=== PATIENT | female | born 1945 | race Caucasian/White ===

== ENCOUNTER 2017-11-03 06:20 | Observation (INO) | payer MEDICARE, OTHER ==
[2017-11-03] MEDS ORDERED: Sodium Chloride 0.9% 10 ML Syringe FLUSH PRN (06:58)
[2017-11-03] MEDS ORDERED: Ketorolac 30 MG/ML SDV IVPUSH ONE (06:58)
--- NOTE | 2017-11-03 07:05 | EDM.PDOC ---
<Jung Shore - Last Filed: 11/03/17 07:00> ED HPI GENERAL MEDICAL PROBLEM - General Chief Complaint: Neuro Symptoms/Deficits Stated Complaint: NOT FEELING LIKE HERSELF NOT CLEAR THINKING Time Seen by Provider: 11/03/17 06:34 Source of Information: Reports: Patient, Family, RN Notes Reviewed (Son) History Limitations: Reports: No Limitations - History of Present Illness INITIAL COMMENTS - FREE TEXT/NARRATIVE: Brought in by her son Chief complaint Headache, convulsion History of present illness 72-year-old female, retired, lives on her own, slipped on concrete steps 4 days ago at home, slid down 3 or 4 steps and wound up on the landing. She didn't hit her head she states that she did snap her neck quite a bit. She laid there a few minutes before getting herself up and carrying on with rest for a day. Apart from being ill stiff and sore she had no trouble that they or the next day but then 2 days ago she started feeling a bit nauseated and her back was a bit more uncomfortable for her. Yesterday she went to [place], picked up her son who had a couple days off and he came to stay with her. That evening, last night, for some reason she felt an incredible urge to urinate and had frequency and urgency and even incontinent about 3 times so she did make to the bathroom in time. No problems with walking or balance no pain with urination. She did have some backache and she wonders if she might of [place] kidney when she fell and she did later noticed a bruise there. However the urine looked totally yellow and clear without any evidence of darkness or blood. Woken up about 4:30 with tremors to her whole body lasted for about half an hour on and off, very uncomfortable. Managed to fall back asleep and woke up at 5:30 with a terrible generalized headache. Called her son who had stayed with her overnight and asked him to take her to the hospital. According to the son her color in appearance and behavior was normal, no confusion no facial droop. She has some mild tremor of the head and hands which has been unchanged. Nausea is better today, she did not have any vomiting yesterday or today No pain in her arms or legs which does have some low back pain a little bit of discomfort between her shoulder blades No difficulties breathing no chest pain no abdominal pain no diarrhea and no skin wounds apart from bruising on her back. No history of any convulsion-like spells previously and rarely gets headaches. She drinks alcohol very rarely, less than once a month and only had one wine cooler in the last year Her only recent medication changes that she ran out of it and stopped using Spiriva about 5 days ago Not on anticoagulants Head Pain Score (Numeric/FACES): 10 - Related Data Allergies Allergy/AdvReac Type Severity Reaction Status Date / Time broccoli Allergy Other Verified 11/03/17 06:28 buspirone [From BuSpar] Allergy Cannot Verified 11/03/17 06:28 Remember doxycycline Allergy Cannot Verified 11/03/17 06:28 Remember paroxetine [From Paxil] Allergy Cannot Verified 11/03/17 06:28 Remember venlafaxine [From Effexor] Allergy Cannot Verified 11/03/17 06:28 Remember lisinopril AdvReac Cough Verified 11/03/17 06:28 scopolamine AdvReac Hallucinati Verified 11/03/17 06:28 ons SHRIMP FLAVOR Allergy Nausea and Uncoded 11/03/17 06:28 Vomiting Home Meds: Home Meds Gabapentin [Neurontin] 300 mg PO BEDTIME 06/25/16 [History] Propranolol [Inderal] 20 mg PO BID 06/25/16 [History] Caffeine [Vivarin] 200 mg PO DAILY 06/28/16 [History] Cholecalciferol (Vitamin D3) [Vitamin D3] 5,000 units PO DAILY 06/28/16 [History ] Latanoprost [Xalatan 0.005% Ophth Soln] 1 drop EYELF DAILY 06/28/16 [History] Mv-Mn/FA/Vit K/Lycop/Lut/Zeaxa [Ocuvite Eye + Multi Tablet] 1 tab PO DAILY 06/28 [History] Aspirin [Low Dose Aspirin EC] 81 mg PO DAILY 11/03/17 [History] Clopidogrel Bisulfate [Clopidogrel] 75 mg PO DAILY 11/03/17 [History] Timolol Maleate [Timolol Maleate] 1 drop EYEBOTH DAILY 11/03/17 [History] atorvaSTATin [Lipitor] 20 mg PO BEDTIME 11/03/17 [History] Past Medical History Cardiovascular History: Reports: High Cholesterol, Hypertension, Stents Respiratory History: Reports: COPD Genitourinary History: Reports: Renal Calculus 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 Denies: Fever, Diaphoresis HEENT: Reports: No Symptoms. Denies: Rhinitis, Vertigo Respiratory: Reports: No Symptoms Cardiovascular: Reports: No Symptoms. Denies: Chest Pain, Lightheadedness, Syncope Endocrine: Reports: Polyuria GI/Abdominal: Reports: Nausea. Denies: Abdominal Pain, Diarrhea, Decreased Appetite, Vomiting : Reports: Frequency, Urgency. Denies: Dysuria, Hematuria Musculoskeletal: Reports: Back Pain Skin: Reports: No Symptoms Neurological: Reports: Headache, Other (Convulsion-like episode). Denies: Confusion, Trouble Speaking, Difficulty Walking, Weakness Psychiatric: Reports: No Symptoms Hematologic/Lymphatic: Reports: No Symptoms Immunologic: Reports: No Symptoms ED EXAM, NEURO - Physical Exam Exam: See Below Exam Limited By: No Limitations General Appearance: Alert, Anxious, Mild Distress, Other (No difficulty speaking or breathing, mild tachycardia and modest elevation blood pressure, color normal) Eye Exam: Bilateral Eye: EOMI, Normal Inspection Ears: Normal External Exam, Hearing Grossly Normal Nose: Normal Inspection, Normal Mucosa Throat/Mouth: Normal Inspection, Normal Lips, Normal Oropharynx, Normal Voice Head Exam: Atraumatic, Normocephalic Neck: Normal Inspection, Supple, Tender Lateral Respiratory/Chest: No Respiratory Distress, Lungs Clear, Normal Breath Sounds, No Accessory Muscle Use, Chest Non-Tender Cardiovascular: Regular Rate, Rhythm, No Murmur, Tachycardia (Mild) GI/Abdominal: Normal Bowel Sounds, Soft, Non-Tender, Other (Overweight) Neurological: Alert, Normal Dorsiflexion, Normal Plantar Flexion, Normal Reflexes, No Motor/Sensory Deficits, Other (Normal [id number] testing, no facial droop) Back Exam: Paraspinal Tenderness (Lumbar area and to a lesser degree between the shoulder blades with some tenderness was sitting up), Other (Phill left lumbar area) Extremities: Normal Inspection, Normal Range of Motion Psychiatric: Anxious Skin Exam: Warm, Intact, No Rash Comments: 72-year-old female, fall 4 days ago nausea yesterday frequency and urgency last night, convulsion-like episode and headache this morning. Saline lock Toradol 15 mg IV for headache Investigations ordered Transferred to care of Dr. Jamil pending results and disposition Course - Vital Signs Last Recorded V/S: Last Vital Signs Temp 99.4 F 11/03/17 13:52 Pulse 86 11/03/17 12:19 Resp 20 11/03/17 12:19 BP 144/91 H 11/03/17 12:19 Pulse Ox 91 L 11/03/17 12:19 - Orders/Labs/Meds Orders: Active Orders 24 hr Category Date Time Status Cervical Spine wo Cont [CT] Stat Exams 11/03/17 06:58 Taken Head wo Cont [CT] Stat Exams 11/03/17 06:58 Taken Lumbar Spine wo Cont [CT] Stat Exams 11/03/17 06:58 Taken Sodium Chloride 0.9% [Saline Flush] Med 11/03/17 06:58 Active 10 ml FLUSH ASDIRECTED PRN Saline Lock Insert [OM.PC] Stat Oth 11/03/17 06:57 Ordered Medication Orders Acetaminophen (Tylenol) 650 mg PO Q4H PRN PRN Reason: Pain (Mild 1-3)/fever Aspirin (Halfprin) 81 mg PO DAILY [facility] Clopidogrel Bisulfate (Plavix) 75 mg PO DAILY [facility] Gabapentin (Neurontin) 300 mg PO BEDTIME [facility] Hydromorphone HCl (Dilaudid) 0.5 - 1 mg IVPUSH Q2H PRN PRN Reason: Pain (severe 7-10) Piperacillin/Tazobactam/ (Dextrose 3.375 gm/ Premix) 50 mls @ 100 mls/hr IV Q6H AJAY Last Admin: 11/03/17 15:38 Dose: 100 mls/hr Sodium Chloride (Normal Saline) 1,000 mls @ 100 mls/hr IV ASDIRECTED AJAY Last Admin: 11/03/17 15:34 Dose: 100 mls/hr Ibuprofen (Motrin) 600 mg PO Q6H PRN PRN Reason: Pain/Fever Last Admin: 11/03/17 12:34 Dose: 600 mg Latanoprost (Xalatan 0.005% Ophth Soln) 0 ml EYELF BEDTIME [facility] Ondansetron HCl (Zofran Odt) 4 mg PO Q6H PRN PRN Reason: Nausea able to take PO Ondansetron HCl (Zofran) 4 mg IV Q6H PRN PRN Reason: Nausea/Vomiting Oxycodone HCl (Oxycodone) 5 mg PO Q4H PRN PRN Reason: Pain (moderate 4-6) Propranolol 20mg ( (Ptom)) 0 each PO BID AJAY Sodium Chloride (Saline Flush) 10 ml FLUSH ASDIRECTED PRN PRN Reason: Keep Vein Open Last Admin: 11/03/17 07:22 Dose: 10 ml Timolol Maleate (Timoptic 0.5% Ophth Soln) 0 ml EYEBOTH DAILY AJAY Tizanidine HCl (Zanaflex) 2 mg PO Q6H PRN PRN Reason: Muscle Spasm Labs: Laboratory Tests 11/03/17 11/03/17 11/03/17 Range/Units 07:08 07:08 08:42 WBC 15.6 H (4.5-11.0) K/uL RBC 4.50 (3.30-5.50) M/uL Hgb 13.3 (12.0-15.0) g/dL Hct 41.1 (36.0-48.0) % MCV 91 (80-98) fL MCH 30 (27-31) pg MCHC 32 (32-36) % Plt Count 280 (150-400) K/uL Sodium 141 (140-148) mmol/L Potassium 3.9 (3.6-5.2) mmol/L Chloride 103 (100-108) mmol/L Carbon Dioxide 27 (21-32) mmol/L Anion Gap 11.0 (5.0-14.0) mmol/L BUN 20 H (7-18) mg/dL Creatinine 0.8 (0.6-1.0) mg/dL Est Cr Clr Drug Dosing 51.01 mL/min Estimated GFR (MDRD) > 60 (>60) Glucose 199 H (74-106) mg/dL Calcium 9.1 (8.5-10.1) mg/dL Total Bilirubin 3.5 H (0.2-1.0) mg/dL AST 490 H (15-37) U/L ALT 570 H (12-78) U/L Alkaline Phosphatase 290 H (46-116) U/L Total Protein 6.5 (6.4-8.2) g/dL Albumin 3.3 L (3.4-5.0) g/dL Globulin 3.2 (2.3-3.5) g/dL Albumin/Globulin Ratio 1.0 L (1.2-2.2) Urine Color Yellow Urine Appearance Slightly cloudy Urine pH 5.0 (4.5-8.0) Ur Specific [place] 1.010 (1.008-1.030) Urine Protein Trace (NEGATIVE) mg/dL Urine Glucose (UA) Normal (NEGATIVE) mg/dL Urine Ketones 15 H (NEGATIVE) mg/dL Urine Occult Blood Large (NEGATIVE) Urine Nitrite Negative (NEGATIVE) Urine Bilirubin Moderate (NEGATIVE) Urine Urobilinogen 4 (NORMAL) mg/dL Ur Leukocyte Esterase Small (NEGATIVE) Urine RBC 40-50 H (0-5) Urine WBC 0-5 (0-5) Ur Epithelial Cells Not seen Amorphous Sediment Not seen Urine Bacteria Not seen Urine Mucus Moderate Meds: Medications Generic Name Dose Route Start Last Admin Trade Name Freq PRN Reason Stop Dose Admin Acetaminophen 650 mg 11/03/17 11:55 Tylenol PO Q4H PRN Pain (Mild 1-3)/fever Aspirin 81 mg 11/04/17 09:00 Halfprin PO DAILY [facility] Clopidogrel Bisulfate 75 mg 11/04/17 09:00 Plavix PO DAILY [facility] Gabapentin 300 mg 11/03/17 21:00 Neurontin PO BEDTIME [facility] Hydromorphone HCl 0.5 - 1 mg 11/03/17 11:55 Dilaudid IVPUSH Q2H PRN Pain (severe 7-10) Piperacillin/Tazobactam/ 50 mls @ 100 mls/hr 11/03/17 15:00 11/03/17 15:38 Dextrose 3.375 gm/ Premix IV 100 mls/hr Q6H AJAY Administration Sodium Chloride 1,000 mls @ 100 mls/hr 11/03/17 13:45 11/03/17 15:34 Normal Saline IV 100 mls/hr ASDIRECTED AJAY Administration Ibuprofen 600 mg 11/03/17 11:55 11/03/17 12:34 Motrin PO 600 mg Q6H PRN Administration Pain/Fever Latanoprost 0 ml 11/03/17 21:00 Xalatan 0.005% Ophth Soln EYELF BEDTIME [facility]AY Ondansetron HCl 4 mg 11/03/17 11:55 Zofran Odt PO Q6H PRN Nausea able to take PO Ondansetron HCl 4 mg 11/03/17 11:55 Zofran IV Q6H PRN Nausea/Vomiting Oxycodone HCl 5 mg 11/03/17 11:55 Oxycodone PO Q4H PRN Pain (moderate 4-6) Propranolol 20mg ( 0 each 11/03/17 21:00 Ptom) PO BID AJAY Sodium Chloride 10 ml 11/03/17 06:58 11/03/17 07:22 Saline Flush FLUSH 10 ml ASDIRECTED PRN Administration Keep Vein Open Timolol Maleate 0 ml 11/04/17 09:00 Timoptic 0.5% Ophth Soln EYEBOTH DAILY [facility] Tizanidine HCl 2 mg 11/03/17 11:55 Zanaflex PO Q6H PRN Muscle Spasm Discontinued Medications Generic Name Dose Route Start Last Admin Trade Name Freq PRN Reason Stop Dose Admin Hydromorphone HCl 0.5 mg 11/03/17 08:42 11/03/17 08:48 Dilaudid IVPUSH 11/03/17 08:43 0.5 mg ONETIME ONE Administration Ketorolac Tromethamine 15 mg 11/03/17 06:58 11/03/17 07:24 Toradol IVPUSH 11/03/17 06:59 15 mg ONETIME ONE Administration Departure - Departure Disposition: Admitted As Inpatient 67 Clinical Impression: Elevated liver function tests, Hyperbilirubinemia - Discharge Information <Mikal Jamil - Last Filed: 11/03/17 16:42> Course - Re-Assessments/Exams Free Text/Narrative Re-Assessment/Exam: 11/03/17 10:52 Patient seen and evaluated by Dr. Shore. Care was turned myself pending CT scans and lab. Head neck and lumbar spine CTs were reassuring for acute injury, however her bilirubin returned 3.5 and liver functions are elevated. She also has hematuria. Her headache was very persistent, should she was given 0.5 mg of Dilaudid IV which completely resolved her headache. A gallbladder ultrasound was then obtained which confirmed gallbladder sludge and stones but no dilatation of the bile duct. I talk with Dr. Yuen of the hospitalist service to consider admission to monitor the LFTs and bilirubin over the next 1-2 days. Departure - Departure Time of Disposition: 12:07 Condition: Fair
[2017-11-03] MEDS ORDERED: HYDROmorphone 0.5 MG/0.5 ML Syringe IVPUSH ONE (08:42)
--- NOTE | 2017-11-03 09:38 | US ---
Right upper quadrant ultrasound There is increased echogenicity throughout the liver. The finding is consistent with fatty infiltrati on. Diminished echogenicity near the gallbladder fossa is most consistent with focal sparing. Gallsto thang are seen. There is no wall thickening of the gallbladder. There is no pain with palpation overlyi ng the gallbladder. The common bile duct is within normal limits measuring 5 mm. The pancreas is unre markable. The right kidney measures 9.3 cm in length. There is no hydronephrosis. There is a 1.7 cm c yst of the lower pole. Impression: 1. Fatty infiltration throughout the liver with focal sparing near the gallbladder fossa. 2. Cholelithiasis. No evidence for inflammation.
--- NOTE | 2017-11-03 11:33 | PCM.HP ---
H&P History of Present Illness - General Date of Service: 11/03/17 Admit Problem/Dx: Admission Diagnosis/Problem Admission Diagnosis/Problem Liver function tests abnormal Source of Information: Patient, Family, Provider History Limitations: Reports: No Limitations - History of Present Illness Initial Comments - Free Text/Narative: Matilda presents to the emergency room today with 3 days of both mid and lower back pain after a fall on the stairs at her residence. She reports that she slipped while going down stairs and landed on her buttocks and lower back. She was able to get up under her own power after the incident and has had some stiffness and progressive muscle soreness since that time. She reports dull achy pain in the lower back with a sharper pain in the mid back. This pain can be anywhere from mild to moderately severe but typically are moderate in nature. They're worse with any sort of activity especially bending and twisting. Acetaminophen does provide some relief. She also reports 24 hours of nausea. She has not had much of an appetite. No vomiting or change in bowel habits. She does not have any abdominal pain. She reports subjective fevers as well as an episode of what sounds like shaking chills last night. Her weight has been slowly rising over the past couple of years with some ups and downs but she is near that her highest weight. She was recently treated with a prescription diet medication and stopped this just a week or so ago. Workup in the emergency room revealed a reassuring imaging as far as her cervical spine, lumbar spine and head CT were concerned. An ultrasound of her right upper quadrant did show gallstones but no cholecystitis. Laboratory studies revealed significant transaminitis as well as hyperbilirubinemia. She will be admitted for observation and further workup. Head Pain Score (Numeric/FACES): 10 - Related Data Allergies/Adverse Reactions: Allergies Allergy/AdvReac Type Severity Reaction Status Date / Time broccoli Allergy Other Verified 11/03/17 06:28 buspirone [From BuSpar] Allergy Cannot Verified 11/03/17 06:28 Remember doxycycline Allergy Cannot Verified 11/03/17 06:28 Remember paroxetine [From Paxil] Allergy Cannot Verified 11/03/17 06:28 Remember venlafaxine [From Effexor] Allergy Cannot Verified 11/03/17 06:28 Remember lisinopril AdvReac Cough Verified 11/03/17 06:28 scopolamine AdvReac Hallucinati Verified 11/03/17 06:28 ons SHRIMP FLAVOR Allergy Nausea and Uncoded 11/03/17 06:28 Vomiting Home Medications: Home Meds Gabapentin [Neurontin] 300 mg PO BEDTIME 06/25/16 [History] Propranolol [Inderal] 20 mg PO BID 06/25/16 [History] Biotin 5,000 mcg PO DAILY 06/28/16 [History] Caffeine [Vivarin] 200 mg PO DAILY 06/28/16 [History] Cholecalciferol (Vitamin D3) [Vitamin D3] 5,000 units PO DAILY 06/28/16 [History ] Latanoprost [Xalatan 0.005% Ophth Soln] 1 drop EYELF DAILY 06/28/16 [History] Mv, Min #36/Iron,Carbonyl/FA [Geritol Complete Tablet] 1 tab PO DAILY 06/28/16 [ History] Mv-Mn/FA/Vit K/Lycop/Lut/Zeaxa [Ocuvite Eye + Multi Tablet] 1 tab PO DAILY 06/28 [History] Vitamin E 800 units PO DAILY 06/28/16 [History] Aspirin [Low Dose Aspirin EC] 81 mg PO DAILY 11/03/17 [History] Clopidogrel Bisulfate [Clopidogrel] 75 mg PO DAILY 11/03/17 [History] Timolol Maleate [Timolol Maleate] 1 drop EYEBOTH DAILY 11/03/17 [History] Past Medical History Cardiovascular History: Reports: High Cholesterol, Hypertension, Stents Respiratory History: Reports: COPD Genitourinary History: Reports: Renal Calculus [employer] History: Reports: Psychiatric History: Reports: Depression - Past Surgical History Other Musculoskeletal Surgeries/Procedures:: R HAND, 2ND DIGIT FX Social & Family History - Family History Cardiac: Reports: Aneurysm (Father with AAA) GI: Reports: Cholelithiasis (Brother) Endocrine/Metabolic: Reports: Diabetes, type II (Sister and Brother) - Tobacco Use Smoking Status *Q: Unknown Ever Smoked - Caffeine Use Caffeine Use: Reports: None - Alcohol Use Alcohol Use History: No H&P Review of Systems - Review of Systems: Review Of Systems: See Below Free Text/Narrative: A complete 12 point review of systems was obtained. Pertinent positives and negatives are noted in the history of present illness. All other systems were reviewed and were negative except as noted. Exam - Exam Exam: See Below - Vital Signs Vital Signs: Last Vital Signs Temp 37.3 C 11/03/17 06:23 Pulse 86 11/03/17 09:28 Resp 16 11/03/17 09:28 BP 102/48 L 11/03/17 09:28 Pulse Ox 91 L 11/03/17 09:28 Weight: 110.677 kg - Exam Quality Assessment: No: Supplemental Oxygen General: Alert, Oriented, Cooperative. No: Mild Distress HEENT: Conjunctiva Clear, Mucosa Moist & [place]. No: Scleral Icterus Neck: Supple, Trachea Midline. No: Lymphadenopathy Lungs: Clear to Auscultation, Normal Respiratory Effort Cardiovascular: Regular Rate, Regular Rhythm. No: Systolic Murmur GI/Abdominal Exam: Normal Bowel Sounds, Soft, No Distention, Tender (mild RUQ). No: Guarding Back Exam: Normal Inspection, Decreased Range of Motion, Paraspinal Tenderness ( mid thoracic and lumbar spine with bilateral ttp ) Extremities: No Pedal Edema. No: Increased Warmth Peripheral Pulses: 2+: Dorsalis Pedis (L), Dorsalis Pedis (R) Skin: Warm, Dry, Ecchymosis (left upper gluteal area) Neuro Extensive - Mental Status: Alert, Oriented x3, Nl Response to Commands Neuro Extensive - Motor, Sensory, Reflexes: CN II-XII Intact. No: Dysarthria, Abnormal Motor, Tremor Psychiatric: Alert, Normal Affect - Patient Data Lab Results Last 24 hrs: Laboratory Results - last 24 hr 11/03/17 11/03/17 11/03/17 Range/Units 07:08 07:08 08:42 WBC 15.6 H (4.5-11.0) K/uL RBC 4.50 (3.30-5.50) M/uL Hgb 13.3 (12.0-15.0) g/dL Hct 41.1 (36.0-48.0) % MCV 91 (80-98) fL MCH 30 (27-31) pg MCHC 32 (32-36) % Plt Count 280 (150-400) K/uL Sodium 141 (140-148) mmol/L Potassium 3.9 (3.6-5.2) mmol/L Chloride 103 (100-108) mmol/L Carbon Dioxide 27 (21-32) mmol/L Anion Gap 11.0 (5.0-14.0) mmol/L BUN 20 H (7-18) mg/dL Creatinine 0.8 (0.6-1.0) mg/dL Est Cr Clr Drug Dosing 51.01 mL/min Estimated GFR (MDRD) > 60 (>60) Glucose 199 H (74-106) mg/dL Calcium 9.1 (8.5-10.1) mg/dL Total Bilirubin 3.5 H (0.2-1.0) mg/dL AST 490 H (15-37) U/L ALT 570 H (12-78) U/L Alkaline Phosphatase 290 H (46-116) U/L Total Protein 6.5 (6.4-8.2) g/dL Albumin 3.3 L (3.4-5.0) g/dL Globulin 3.2 (2.3-3.5) g/dL Albumin/Globulin Ratio 1.0 L (1.2-2.2) Urine Color Yellow Urine Appearance Slightly cloudy Urine pH 5.0 (4.5-8.0) Ur Specific [place] 1.010 (1.008-1.030) Urine Protein Trace (NEGATIVE) mg/dL Urine Glucose (UA) Normal (NEGATIVE) mg/dL Urine Ketones 15 H (NEGATIVE) mg/dL Urine Occult Blood Large (NEGATIVE) Urine Nitrite Negative (NEGATIVE) Urine Bilirubin Moderate (NEGATIVE) Urine Urobilinogen 4 (NORMAL) mg/dL Ur Leukocyte Esterase Small (NEGATIVE) Urine RBC 40-50 H (0-5) Urine WBC 0-5 (0-5) Ur Epithelial Cells Not seen Amorphous Sediment Not seen Urine Bacteria Not seen Urine Mucus Moderate Result Diagrams: 11/03/17 07:08 11/03/17 07:08 Imaging Impressions Last 24 hrs: RUQ US - cholelithiasis, no cholecystitis. Fatty liver Head CT - no acute findings Cervical spine CT - no fracture or dislocation Lumbar spine CT - images personally reviewed - No acute findings such as fracture or dislocation. *Q Meaningful Use (ADM) - VTE *Q VTE Criteria *Q: - VTE Risk Assess *Q Each Risk Factor Represents 1 Point: Obesity ( BMI > 25 kg/m2) Total Score 1 Point Risk Factors: 1 Each Risk Factor Represents 2 Points: Age 60 - 74 Years Total Score 2 Point Risk Factors: 2 Each Risk Factor Represents 3 Points: None Total Score 3 Point Risk Factors: 0 Each Risk Factor Represents 5 Points: None Total Score 5 Point Risk Factors: 0 Venous Thromboembolism Risk Factor Score *Q: 3 - Stroke *Q Stroke Criteria *Q: - AMI *Q AMI Criteria *Q: - Problem List (1) Elevated liver function tests SNOMED Code(s): 329545349 ICD Code: R79.89 - OTHER SPECIFIED ABNORMAL FINDINGS OF BLOOD CHEMISTRY Status: Acute Current Visit: Yes (2) Hyperbilirubinemia SNOMED Code(s): 23829531 ICD Code: E80.6 - OTHER DISORDERS OF BILIRUBIN METABOLISM Status: Acute Current Visit: Yes (3) Muscle spasm of back SNOMED Code(s): 899601410 ICD Code: M62.830 - MUSCLE SPASM OF BACK Status: Acute Current Visit: Yes (4) Obesity, morbid, BMI 40.0-49.9 SNOMED Code(s): 262295864 ICD Code: E66.01 - MORBID (SEVERE) OBESITY DUE TO EXCESS CALORIES Status: Chronic Current Visit: Yes (5) CAD (coronary artery disease) SNOMED Code(s): 63393497 ICD Code: I25.10 - ATHSCL HEART DISEASE OF [place] CORONARY ARTERY W/O ANG PCTRS Status: Chronic Current Visit: Yes Qualifiers: Coronary Disease-Associated Artery/Lesion type: [place] artery [place] vs. transplanted heart: [place] heart Associated angina: without angina Qualified Code(s): I25.10 - Atherosclerotic heart disease of [place] coronary artery without angina pectoris Problem List Initiated/Reviewed/Updated: Yes Orders Last 24hrs: Active Orders 24 hr Category Date Time Status Patient Status Manage Transfer [TRANSFER] Routine ADT 11/03/17 11:20 Ordered Cervical Spine wo Cont [CT] Stat Exams 11/03/17 06:58 Taken Head wo Cont [CT] Stat Exams 11/03/17 06:58 Taken Lumbar Spine wo Cont [CT] Stat Exams 11/03/17 06:58 Taken Sodium Chloride 0.9% [Saline Flush] Med 11/03/17 06:58 Active 10 ml FLUSH ASDIRECTED PRN Saline Lock Insert [OM.PC] Stat Oth 11/03/17 06:57 Ordered Resuscitation Status Routine Resus Stat 11/03/17 11:21 Ordered Medication Orders Sodium Chloride (Saline Flush) 10 ml FLUSH ASDIRECTED PRN PRN Reason: Keep Vein Open Last Admin: 11/03/17 07:22 Dose: 10 ml Assessment/Plan Comment:: ASSESSMENT AND PLAN - Transaminitis with elevated bilirubin - etiology not entirely clear at this point. Patient does have cholelithiasis but no evidence for cholecystitis. She was recently on Contrave which could have some potential to cause hepatic injury. Her story seems to be most consistent with a gallstone that she may have passed recently or is potentially still obstructing. She had normal AST and ALTs as well as bilirubin just 3 months ago. Viral disease such as hepatitis is pretty unlikely and she does not have significant risk factors. She did spike a fever she was being transferred from the emergency room to the second floor. -Empiric antibiotics with Pip/Tazo -Blood cultures with fever -Pain control -Nausea control -MRCP in the morning -Repeat labs in the morning Muscular back pain - Significant muscle spasm and some bruising related to recent fall. Spinal imaging was unremarkable. Pain is tolerable at this time. -Pain control -Muscle relaxer Coronary artery disease - Recent stenting. No active symptoms. Functional status had been acceptable prior to recent injury. -Continue medical management Morbid obesity with BMI greater than 40 - Patient has been trying to lose weight with diet and exercise. Recently on prescription weight loss medication with no improvement. Maintenance issues - - DVT prophylaxis - mechanical - GI prophylaxis - not indicated - Nutrition - regular diet tonight, nothing by mouth after midnight - Hdez catheter - not indicated CODE STATUS - full code Admission justification - patient will be referred observation status for monitoring overnight and additional testing tomorrow as well as symptom management overnight. Disposition - anticipate discharge home tomorrow Primary care physician - Dr. Isabela Yuen M.D.
[2017-11-03] MEDS ORDERED: HYDROmorphone 0.5 MG/0.5 ML Syringe IVPUSH PRN (11:55)
[2017-11-03] MEDS ORDERED: oxyCODONE 5 MG Tab PO PRN (11:55)
[2017-11-03] MEDS ORDERED: Ondansetron 4 MG Tab.DIS PO PRN (11:55)
[2017-11-03] MEDS ORDERED: Ondansetron 4 MG/2 ML SDV IV PRN (11:55)
[2017-11-03] MEDS ORDERED: Acetaminophen 325 MG Tab PO PRN (11:55)
[2017-11-03] MEDS: Ibuprofen 600 MG Tab PO PRN ×2 (12:34→22:02)
[2017-11-03] MEDS: Sodium Chloride 0.9% 1,000 ML IV SCH (15:34)
[2017-11-03] MEDS: Piperacillin/Tazobactam/Dext 3.375 GM in Premix Bag 1 BAG IV SCH ×2 (15:38→21:39)
[2017-11-03] MEDS ORDERED: Non-Formulary Medication 1 Each (Gabapentin [Neurontin] 300 MG) PO SCH (21:00)
[2017-11-03] MEDS ORDERED: TIMOLOL MALEATE PO SCH (21:00)
[2017-11-03] MEDS ORDERED: Propranolol 10 MG Tab PO SCH (21:00)
[2017-11-03] MEDS ORDERED: PROPRANOLOL 20 MG PO SCH (21:00)
[2017-11-03] MEDS: PROPRANOLOL 20 MG PO SCH (21:35)
[2017-11-03] MEDS: Gabapentin 300 MG Cap (PTOM) PO SCH (21:35)
[2017-11-03] MEDS: Latanoprost 0.005% Ophth Soln (PTOM) EYELF SCH (21:38)
[2017-11-04] MEDS: Sodium Chloride 0.9% 1,000 ML IV SCH ×2 (01:05→17:15)
[2017-11-04] MEDS: Piperacillin/Tazobactam/Dext 3.375 GM in Premix Bag 1 BAG IV SCH ×4 (03:10→20:59)
[2017-11-04] MEDS ORDERED: diphenhydrAMINE 25 MG Cap PO ONE (04:02)
[2017-11-04] MEDS ORDERED: Clopidogrel 75 MG Tab (PTOM) PO SCH (09:00)
[2017-11-04] MEDS ORDERED: Non-Formulary Medication 1 Each (Clopidogrel Bisulfate [Clopidogrel] 75 MG) PO SCH (09:00)
[2017-11-04] MEDS ORDERED: Non-Formulary Medication 1 Each (Latanoprost [Xalatan 0.005% Ophth Soln] 1 DROP) EYELF SCH (09:00)
[2017-11-04] MEDS ORDERED: Non-Formulary Medication 1 Each (Aspirin [Low Dose Aspirin Ec] 81 MG) PO SCH (09:00)
[2017-11-04] MEDS: TIMOLOL MALEATE 0.5% EYEBOTH SCH (10:34)
[2017-11-04] MEDS: PROPRANOLOL 20 MG PO SCH ×2 (10:34→21:01)
[2017-11-04] MEDS: Aspirin 81 MG Tab.EC PO SCH (11:19)
[2017-11-04] MEDS: tiZANidine 4 MG Tab PO PRN ×2 (11:36→20:58)
[2017-11-04] MEDS ORDERED: LORazepam 1 MG Tab PO ONE (14:00)
[2017-11-04] MEDS ORDERED: Potassium Chloride 20 MEQ Tab.ER PO ONE (17:00)
--- NOTE | 2017-11-04 17:14 | PCM.PN ---
- General Info Date of Service: 11/04/17 Functional Status: Reports: Pain Controlled, Tolerating Diet - Review of Systems General: Denies: Fever Gastrointestinal: Reports: Abdominal Pain Musculoskeletal: Reports: Back Pain Systems Review Comment:: no acute events overnight. Temperatures have been better since her fever right after admission. Abdominal pain is better but not resolved. Back pain is better but not resolved. White blood cell count is better. MRCP this afternoon did show a 4 mm common bile duct stone but no evidence for cholecystitis. - Patient Data Vitals - Most Recent: Last Vital Signs Temp 37.1 C 11/04/17 15:56 Pulse 65 11/04/17 15:56 Resp 16 11/04/17 15:56 BP 153/74 H 11/04/17 15:56 Pulse Ox 92 L 11/04/17 15:56 Weight - Most Recent: 110.677 kg I&O - Last 24 Hours: Intake & Output 11/04/17 11/04/17 11/04/17 06:59 14:59 22:59 Intake Total 1956 50 50 Output Total 600 200 Balance 1356 -150 50 Lab Results Last 24 Hours: Laboratory Results - last 24 hr 11/04/17 11/04/17 Range/Units 04:42 04:42 WBC 8.9 (4.5-11.0) K/uL RBC 4.03 (3.30-5.50) M/uL Hgb 11.9 L (12.0-15.0) g/dL Hct 37.7 (36.0-48.0) % MCV 94 (80-98) fL MCH 30 (27-31) pg MCHC 32 (32-36) % Plt Count 224 (150-400) K/uL Sodium 141 (140-148) mmol/L Potassium 3.5 L (3.6-5.2) mmol/L Chloride 105 (100-108) mmol/L Carbon Dioxide 26 (21-32) mmol/L Anion Gap 13.5 (5.0-14.0) mmol/L BUN 17 (7-18) mg/dL Creatinine 0.9 (0.6-1.0) mg/dL Est Cr Clr Drug Dosing 45.34 mL/min Estimated GFR (MDRD) > 60 (>60) Glucose 153 H (74-106) mg/dL Calcium 8.4 L (8.5-10.1) mg/dL Total Bilirubin 2.9 H (0.2-1.0) mg/dL AST 147 H (15-37) U/L ALT 309 H (12-78) U/L Alkaline Phosphatase 237 H (46-116) U/L Total Protein 5.6 L (6.4-8.2) g/dL Albumin 2.7 L (3.4-5.0) g/dL Globulin 2.9 (2.3-3.5) g/dL Albumin/Globulin Ratio 0.9 L (1.2-2.2) Bart Results Last 24 Hours: Microbiology 11/03/17 14:00 Aerobic Blood Culture - Preliminary Blood - Arm, Right NO GROWTH AFTER 1 DAY Anaerobic Blood Culture - Preliminary NO GROWTH AFTER 1 DAY 11/03/17 13:55 Aerobic Blood Culture - Preliminary Blood - Arm, Left NO GROWTH AFTER 1 DAY Anaerobic Blood Culture - Preliminary NO GROWTH AFTER 1 DAY Med Orders - Current: Current Medications Acetaminophen (Tylenol) 650 mg PO Q4H PRN PRN Reason: Pain (Mild 1-3)/fever Last Admin: 11/04/17 10:39 Dose: 650 mg Aspirin (Halfprin) 81 mg PO DAILY [facility] Last Admin: 11/04/17 11:19 Dose: Not Given Clopidogrel Bisulfate (Plavix) 75 mg PO Q24H [facility] Gabapentin (Neurontin) 300 mg PO BEDTIME [facility] Last Admin: 11/03/17 21:35 Dose: 300 mg Hydromorphone HCl (Dilaudid) 0.5 - 1 mg IVPUSH Q2H PRN PRN Reason: Pain (severe 7-10) Piperacillin/Tazobactam/ (Dextrose 3.375 gm/ Premix) 50 mls @ 100 mls/hr IV Q6H [facility] Last Admin: 11/04/17 16:12 Dose: 100 mls/hr Ibuprofen (Motrin) 600 mg PO Q6H PRN PRN Reason: Pain/Fever Last Admin: 11/03/17 22:02 Dose: 600 mg Latanoprost (Xalatan 0.005% Ophth Soln) 0 ml EYELF BEDTIME [facility] Last Admin: 11/03/17 21:38 Dose: 1 drop Ondansetron HCl (Zofran Odt) 4 mg PO Q6H PRN PRN Reason: Nausea able to take PO Ondansetron HCl (Zofran) 4 mg IV Q6H PRN PRN Reason: Nausea/Vomiting Oxycodone HCl (Oxycodone) 5 mg PO Q4H PRN PRN Reason: Pain (moderate 4-6) Last Admin: 11/03/17 22:02 Dose: 5 mg Propranolol 20mg ( (Ptom)) 0 each PO BID [facility] Last Admin: 11/04/17 10:34 Dose: 1 each Sodium Chloride (Saline Flush) 10 ml FLUSH ASDIRECTED PRN PRN Reason: Keep Vein Open Last Admin: 11/03/17 07:22 Dose: 10 ml Timolol Maleate (Timoptic 0.5% Ophth Soln) 0 ml EYEBOTH DAILY [facility] Last Admin: 11/04/17 10:34 Dose: 1 drop Tizanidine HCl (Zanaflex) 2 mg PO Q6H PRN PRN Reason: Muscle Spasm Last Admin: 11/04/17 11:36 Dose: 2 mg Discontinued Medications Clopidogrel Bisulfate (Plavix) 75 mg PO DAILY [facility] Last Admin: 11/04/17 11:20 Dose: Not Given Diphenhydramine HCl (Benadryl) 25 mg PO ONETIME ONE Stop: 11/04/17 04:03 Last Admin: 11/04/17 04:19 Dose: 25 mg Hydromorphone HCl (Dilaudid) 0.5 mg IVPUSH ONETIME ONE Stop: 11/03/17 08:43 Last Admin: 11/03/17 08:48 Dose: 0.5 mg Sodium Chloride (Normal Saline) 1,000 mls @ 100 mls/hr IV ASDIRECTED [facility] Last Admin: 11/04/17 01:05 Dose: 100 mls/hr Ketorolac Tromethamine (Toradol) 15 mg IVPUSH ONETIME ONE Stop: 11/03/17 06:59 Last Admin: 11/03/17 07:24 Dose: 15 mg Lorazepam (Ativan) 1 mg PO ONETIME ONE Stop: 11/04/17 14:01 Last Admin: 11/04/17 13:58 Dose: 1 mg Potassium Chloride (Klor-Con M20) 40 meq PO ONETIME ONE Stop: 11/04/17 17:01 - Exam Quality Assessment: No: Supplemental Oxygen General: Alert, Oriented, Cooperative, No Acute Distress Neck: Supple Lungs: Normal Respiratory Effort GI/Abdominal Exam: Soft, Non-Tender, No Distention Extremities: No Pedal Edema Psy/Mental Status: Alert, Normal Affect - Problem List & Annotations (1) Elevated liver function tests SNOMED Code(s): 852765475 Code(s): R79.89 - OTHER SPECIFIED ABNORMAL FINDINGS OF BLOOD CHEMISTRY Status: Acute Current Visit: Yes (2) Hyperbilirubinemia SNOMED Code(s): 30459947 Code(s): E80.6 - OTHER DISORDERS OF BILIRUBIN METABOLISM Status: Acute Current Visit: Yes (3) Muscle spasm of back SNOMED Code(s): 773012941 Code(s): M62.830 - MUSCLE SPASM OF BACK Status: Acute Current Visit: Yes (4) Obesity, morbid, BMI 40.0-49.9 SNOMED Code(s): 349613247 Code(s): E66.01 - MORBID (SEVERE) OBESITY DUE TO EXCESS CALORIES Status: Chronic Current Visit: Yes (5) CAD (coronary artery disease) SNOMED Code(s): 62090285 Code(s): I25.10 - ATHSCL HEART DISEASE OF [place] CORONARY ARTERY W/O ANG PCTRS Status: Chronic Current Visit: Yes Qualifiers: Coronary Disease-Associated Artery/Lesion type: [place] artery [place] vs. transplanted heart: [place] heart Associated angina: without angina Qualified Code(s): I25.10 - Atherosclerotic heart disease of [place] coronary artery without angina pectoris (6) Cholelithiasis with choledocholithiasis SNOMED Code(s): 490381272 Code(s): K80.70 - CALCULUS OF GB AND BILE DUCT W/O CHOLECYST W/O OBSTRUCTION Status: Acute Current Visit: Yes - Problem List Review Problem List Initiated/Reviewed/Updated: Yes - My Orders Last 24 Hours: My Active Orders 11/03/17 21:00 Gabapentin [Neurontin] 300 mg PO BEDTIME Latanoprost [Xalatan 0.005% Ophth Soln] 0 ml EYELF BEDTIME Patient's Own Medication [Ptom] 0 each PO BID 11/04/17 07:00 Cholangiopancreatography [MR] Routine 11/04/17 09:00 Aspirin [Halfprin] 81 mg PO DAILY Timolol Maleate [Timoptic 0.5% Ophth Soln] 0 ml EYEBOTH DAILY 11/04/17 11:20 Convert IV to Saline Lock [OM.PC] Routine 11/04/17 17:08 Consult to Physician [CONS] Routine 11/04/17 17:09 Notify Provider Consults [RC] ASDIRECTED 11/04/17 17:15 Sodium Chloride 0.9% @ 75 MLS/HR(1000ml) Sodium Chloride 0.9% [Normal Saline] 1 ,000 ml IV ASDIRECTED 11/05/17 05:00 CBC W/O DIFF,HEMOGRAM [HEME] Timed (1) COMPREHENSIVE METABOLIC PN,CMP [CHEM] Timed 11/05/17 16:00 Clopidogrel [Plavix] 75 mg PO Q24H 11/05/17 Breakfast Nothing per Oral After Midnight Diet [DIET] - Plan Plan:: ASSESSMENT AND PLAN - Cholelithiasis with choledocholithiasis - likely cause for transaminitis as well as fever. Temperatures better overnight. Blood cultures negative so far. MRCP did confirm common bile duct stone. Also multiple gall stones noted. I did talk to Dr. Anna and he is agreeable to performing a laparoscopic cholecystectomy and bile duct exploration to remove the stone in the morning. -Empiric antibiotics with Pip/Tazo -Blood cultures with fever -Pain control -Nausea control -surgical intervention in the morning, lap mago and common bile duct exploration -Repeat labs in the morning Muscular back pain - Significant muscle spasm and some bruising related to recent fall. Spinal imaging was unremarkable. Pain is tolerable and improving. -Pain control -Muscle relaxer as needed Coronary artery disease - Recent stenting. No active symptoms. Functional status had been acceptable prior to recent injury. -Continue medical management Morbid obesity with BMI greater than 40 - Patient has been trying to lose weight with diet and exercise. Recently on prescription weight loss medication with no improvement. Maintenance issues - - DVT prophylaxis - mechanical - GI prophylaxis - not indicated - Nutrition - regular diet tonight, nothing by mouth after midnight Disposition - anticipate discharge home after the hospital stay Sincere Yuen M.D.
[2017-11-04] MEDS: Gabapentin 300 MG Cap (PTOM) PO SCH (21:01)
[2017-11-04] MEDS: Latanoprost 0.005% Ophth Soln (PTOM) EYELF SCH (21:02)
[2017-11-05] MEDS: Piperacillin/Tazobactam/Dext 3.375 GM in Premix Bag 1 BAG IV SCH ×2 (02:32→08:52)
[2017-11-05] MEDS: Sodium Chloride 0.9% 1,000 ML IV SCH ×2 (05:55→13:57)
[2017-11-05] MEDS: PROPRANOLOL 20 MG PO SCH (09:11)
[2017-11-05] MEDS: Aspirin 81 MG Tab.EC PO SCH (09:11)
--- NOTE | 2017-11-05 09:26 | PCM.PN ---
- General Info Date of Service: 11/05/17 Functional Status: Reports: Pain Controlled, Tolerating Diet - Review of Systems General: Reports: Fever Gastrointestinal: Reports: Abdominal Pain Systems Review Comment:: No acute events overnight though she did have one fever. No reports of abdominal pain or nausea this morning. Back pain and headache are both better today after using a muscle relaxer yesterday. Bilirubin, AST and ALTs have all improved from yesterday. Surgery planned later this morning. - Patient Data Vitals - Most Recent: Last Vital Signs Temp 37.7 C 11/05/17 09:21 Pulse 85 11/05/17 07:08 Resp 18 11/05/17 07:08 BP 150/72 H 11/05/17 07:08 Pulse Ox 92 L 11/05/17 07:08 Weight - Most Recent: 110.677 kg I&O - Last 24 Hours: Intake & Output 11/04/17 11/05/17 11/05/17 22:59 06:59 14:59 Intake Total 939 825 Output Total 700 Balance 939 825 -700 Lab Results Last 24 Hours: Laboratory Results - last 24 hr 11/05/17 11/05/17 Range/Units 05:23 05:23 WBC 7.6 (4.5-11.0) K/uL RBC 4.10 (3.30-5.50) M/uL Hgb 12.2 (12.0-15.0) g/dL Hct 38.9 (36.0-48.0) % MCV 95 (80-98) fL MCH 30 (27-31) pg MCHC 31 L (32-36) % Plt Count 234 (150-400) K/uL Sodium 144 (140-148) mmol/L Potassium 4.2 (3.6-5.2) mmol/L Chloride 108 (100-108) mmol/L Carbon Dioxide 28 (21-32) mmol/L Anion Gap 8.5 (5.0-14.0) mmol/L BUN 13 (7-18) mg/dL Creatinine 0.8 (0.6-1.0) mg/dL Est Cr Clr Drug Dosing 50.57 mL/min Estimated GFR (MDRD) > 60 (>60) Glucose 115 H (74-106) mg/dL Calcium 8.6 (8.5-10.1) mg/dL Total Bilirubin 1.2 H D (0.2-1.0) mg/dL AST 65 H (15-37) U/L ALT 208 H (12-78) U/L Alkaline Phosphatase 219 H (46-116) U/L Total Protein 5.9 L (6.4-8.2) g/dL Albumin 2.6 L (3.4-5.0) g/dL Globulin 3.3 (2.3-3.5) g/dL Albumin/Globulin Ratio 0.8 L (1.2-2.2) Bart Results Last 24 Hours: Microbiology 11/03/17 14:00 Aerobic Blood Culture - Preliminary Blood - Arm, Right NO GROWTH AFTER 1 DAY Anaerobic Blood Culture - Preliminary NO GROWTH AFTER 1 DAY 11/03/17 13:55 Aerobic Blood Culture - Preliminary Blood - Arm, Left NO GROWTH AFTER 1 DAY Anaerobic Blood Culture - Preliminary NO GROWTH AFTER 1 DAY Med Orders - Current: Current Medications Acetaminophen (Tylenol) 650 mg PO Q4H PRN PRN Reason: Pain (Mild 1-3)/fever Last Admin: 11/04/17 10:39 Dose: 650 mg Aspirin (Halfprin) 81 mg PO DAILY [facility] Last Admin: 11/05/17 09:11 Dose: Not Given Clopidogrel Bisulfate (Plavix) 75 mg PO Q24H [facility] Gabapentin (Neurontin) 300 mg PO BEDTIME [facility] Last Admin: 11/04/17 21:01 Dose: 300 mg Hydromorphone HCl (Dilaudid) 0.5 - 1 mg IVPUSH Q2H PRN PRN Reason: Pain (severe 7-10) Piperacillin/Tazobactam/ (Dextrose 3.375 gm/ Premix) 50 mls @ 100 mls/hr IV Q6H [facility] Last Admin: 11/05/17 08:52 Dose: 100 mls/hr Sodium Chloride (Normal Saline) 1,000 mls @ 75 mls/hr IV ASDIRECTED [facility] Last Admin: 11/05/17 05:55 Dose: 75 mls/hr Ibuprofen (Motrin) 600 mg PO Q6H PRN PRN Reason: Pain/Fever Last Admin: 11/03/17 22:02 Dose: 600 mg Latanoprost (Xalatan 0.005% Ophth Soln) 0 ml EYELF BEDTIME [facility] Last Admin: 11/04/17 21:02 Dose: 1 drop Ondansetron HCl (Zofran Odt) 4 mg PO Q6H PRN PRN Reason: Nausea able to take PO Ondansetron HCl (Zofran) 4 mg IV Q6H PRN PRN Reason: Nausea/Vomiting Oxycodone HCl (Oxycodone) 5 mg PO Q4H PRN PRN Reason: Pain (moderate 4-6) Last Admin: 11/03/17 22:02 Dose: 5 mg Propranolol 20mg ( (Ptom)) 0 each PO BID [facility] Last Admin: 11/05/17 09:11 Dose: Not Given Sodium Chloride (Saline Flush) 10 ml FLUSH ASDIRECTED PRN PRN Reason: Keep Vein Open Last Admin: 11/03/17 07:22 Dose: 10 ml Timolol Maleate (Timoptic 0.5% Ophth Soln) 0 ml EYEBOTH DAILY [facility] Last Admin: 11/04/17 10:34 Dose: 1 drop Tizanidine HCl (Zanaflex) 2 mg PO Q6H PRN PRN Reason: Muscle Spasm Last Admin: 11/04/17 20:58 Dose: 2 mg Discontinued Medications Clopidogrel Bisulfate (Plavix) 75 mg PO DAILY [facility] Last Admin: 11/04/17 11:20 Dose: Not Given Diphenhydramine HCl (Benadryl) 25 mg PO ONETIME ONE Stop: 11/04/17 04:03 Last Admin: 11/04/17 04:19 Dose: 25 mg Hydromorphone HCl (Dilaudid) 0.5 mg IVPUSH ONETIME ONE Stop: 11/03/17 08:43 Last Admin: 11/03/17 08:48 Dose: 0.5 mg Sodium Chloride (Normal Saline) 1,000 mls @ 100 mls/hr IV ASDIRECTED [facility] Last Admin: 11/04/17 01:05 Dose: 100 mls/hr Ketorolac Tromethamine (Toradol) 15 mg IVPUSH ONETIME ONE Stop: 11/03/17 06:59 Last Admin: 11/03/17 07:24 Dose: 15 mg Lorazepam (Ativan) 1 mg PO ONETIME ONE Stop: 11/04/17 14:01 Last Admin: 11/04/17 13:58 Dose: 1 mg Potassium Chloride (Klor-Con M20) 40 meq PO ONETIME ONE Stop: 11/04/17 17:01 Last Admin: 11/04/17 17:13 Dose: 40 meq - Exam Quality Assessment: No: Supplemental Oxygen General: Alert, Oriented, Cooperative, No Acute Distress Neck: Supple Lungs: Normal Respiratory Effort GI/Abdominal Exam: No Distention Extremities: No Pedal Edema Skin: Warm, Dry Psy/Mental Status: Alert, Normal Affect - Problem List & Annotations (1) Elevated liver function tests SNOMED Code(s): 809976048 Code(s): R79.89 - OTHER SPECIFIED ABNORMAL FINDINGS OF BLOOD CHEMISTRY Status: Acute Current Visit: Yes (2) Hyperbilirubinemia SNOMED Code(s): 73664733 Code(s): E80.6 - OTHER DISORDERS OF BILIRUBIN METABOLISM Status: Acute Current Visit: Yes (3) Muscle spasm of back SNOMED Code(s): 801318414 Code(s): M62.830 - MUSCLE SPASM OF BACK Status: Acute Current Visit: Yes (4) Obesity, morbid, BMI 40.0-49.9 SNOMED Code(s): 537608844 Code(s): E66.01 - MORBID (SEVERE) OBESITY DUE TO EXCESS CALORIES Status: Chronic Current Visit: Yes (5) CAD (coronary artery disease) SNOMED Code(s): 68041228 Code(s): I25.10 - ATHSCL HEART DISEASE OF [place] CORONARY ARTERY W/O ANG PCTRS Status: Chronic Current Visit: Yes Qualifiers: Coronary Disease-Associated Artery/Lesion type: [place] artery [place] vs. transplanted heart: [place] heart Associated angina: without angina Qualified Code(s): I25.10 - Atherosclerotic heart disease of [place] coronary artery without angina pectoris (6) Cholelithiasis with choledocholithiasis SNOMED Code(s): 304612492 Code(s): K80.70 - CALCULUS OF GB AND BILE DUCT W/O CHOLECYST W/O OBSTRUCTION Status: Acute Current Visit: Yes - Problem List Review Problem List Initiated/Reviewed/Updated: Yes - My Orders Last 24 Hours: My Active Orders 11/04/17 09:00 Aspirin [Halfprin] 81 mg PO DAILY Timolol Maleate [Timoptic 0.5% Ophth Soln] 0 ml EYEBOTH DAILY 11/04/17 11:20 Convert IV to Saline Lock [OM.PC] Routine 11/04/17 17:08 Consult to Physician [CONS] Routine 11/04/17 17:09 Notify Provider Consults [RC] ASDIRECTED 11/04/17 17:15 Sodium Chloride 0.9% [Normal Saline] 1,000 ml IV ASDIRECTED 11/05/17 16:00 Clopidogrel [Plavix] 75 mg PO Q24H 11/05/17 Breakfast Nothing per Oral After Midnight Diet [DIET] 11/06/17 05:00 CBC W/O DIFF,HEMOGRAM [HEME] Timed (1) COMPREHENSIVE METABOLIC PN,CMP [CHEM] Timed - Plan Plan:: ASSESSMENT AND PLAN - Cholelithiasis with choledocholithiasis - likely cause for transaminitis as well as fever. Did have another fever overnight but otherwise clinically looks well and labs are improving. Cholecystectomy and bile duct exploration planned this morning. -Empiric antibiotics with Pip/Tazo -Blood cultures with fever -Pain control -Nausea control -surgical intervention this morning, lap mago and common bile duct exploration -Repeat labs in the morning Muscular back pain - Significant muscle spasm and some bruising related to recent fall. Pain much better today after muscle relaxer last night. -Pain control -Muscle relaxer as needed Coronary artery disease - Recent stenting for anginal type symptoms. No active symptoms. Functional status had been acceptable prior to recent injury. -Continue medical management Morbid obesity with BMI greater than 40 - Patient has been trying to lose weight with diet and exercise. Recently on prescription weight loss medication with no improvement. Maintenance issues - - DVT prophylaxis - mechanical - GI prophylaxis - not indicated - Nutrition - nothing by mouth until after surgery Disposition - anticipate discharge home after the hospital stay Sincere Yuen M.D.
[2017-11-05] MEDS: TIMOLOL MALEATE 0.5% EYEBOTH SCH (09:39)
[2017-11-05] MEDS ORDERED: Neostigmine Methylsulfate 1 MG/ML 5 ML Syringe ONE (10:41)
[2017-11-05] MEDS ORDERED: Rocuronium 50 MG/5 ML Vial ONE (10:41)
[2017-11-05] MEDS ORDERED: Propofol 200 MG/20 ML SDV ONE (10:41)
[2017-11-05] MEDS ORDERED: Glycopyrrolate 0.2 MG/ML 5 ML MDV ONE (10:41)
[2017-11-05] MEDS ORDERED: fentaNYL 250 MCG/5 ML SDV ONE (10:41)
[2017-11-05] MEDS ORDERED: Lidocaine 1% with EPINEPHrine 1:100,000 50 ML MDV ONE (10:41)
[2017-11-05] MEDS ORDERED: Ondansetron 4 MG/2 ML SDV ONE (10:41)
[2017-11-05] MEDS ORDERED: Dexamethasone 4 MG/ML SDV ONE (10:41)
[2017-11-05] MEDS ORDERED: Bupivacaine 0.5% 50 ML MDV ONE (10:41)
[2017-11-05] MEDS ORDERED: Succinylcholine 200 MG/10 ML MDV ONE (10:41)
[2017-11-05] MEDS ORDERED: Benzocaine/Cetylpyridinium/Menthol Lozenge MUCMEM PRN (11:05)
[2017-11-05] MEDS ORDERED: hydrOXYzine HCl 100 MG/2 ML SDV IM PRN (11:05)
[2017-11-05] MEDS ORDERED: Bisacodyl 5 MG Tab PO PRN (11:05)
[2017-11-05] MEDS ORDERED: fentaNYL 100 MCG/2 ML SDV IVPUSH PRN (11:05)
[2017-11-05] MEDS ORDERED: Zolpidem 5 MG Tab PO PRN (11:05)
[2017-11-05] MEDS ORDERED: Docusate Sodium 100 MG Cap PO PRN (11:05)
[2017-11-05] MEDS ORDERED: Acetaminophen/oxyCODONE 325-10 MG Tab PO PRN (11:05)
[2017-11-05] MEDS ORDERED: metroNIDAZOLE/Normal Saline 500 MG in Premix Bag 1 BAG IV ONE (11:30)
[2017-11-05] MEDS ORDERED: ceFAZolin 2 GM in Premix Bag 1 BAG IV ONE (11:30)
[2017-11-05] MEDS ORDERED: ePHEDrine 50 MG/ML SDV ONE (11:43)
[2017-11-05] MEDS ORDERED: Lactated Ringers 1,000 ML ONE (11:55)
[2017-11-05] MEDS ORDERED: Labetalol 20 MG/4 ML Syringe IVPUSH PRN (13:15)
[2017-11-05] MEDS ORDERED: Labetalol 20 MG/4 ML Syringe ONE (13:25)
--- NOTE | 2017-11-05 13:57 | PCM.DCSUM1 ---
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 Workup in the emergency room revealed elevated bilirubin, AST and ALTs and she was admitted for further workup. - Discharge Data Discharge Date: 11/05/17 Discharge Disposition: DC/Tfer to Acute Hospital 02 Condition: Fair - Discharge Diagnosis/Problem(s) (1) Elevated liver function tests SNOMED Code(s): 896445879 ICD Code: R79.89 - OTHER SPECIFIED ABNORMAL FINDINGS OF BLOOD CHEMISTRY Status: Acute Current Visit: Yes (2) Hyperbilirubinemia SNOMED Code(s): 65044146 ICD Code: E80.6 - OTHER DISORDERS OF BILIRUBIN METABOLISM Status: Acute Current Visit: Yes (3) Muscle spasm of back SNOMED Code(s): 412577658 ICD Code: M62.830 - MUSCLE SPASM OF BACK Status: Acute Current Visit: Yes (4) Obesity, morbid, BMI 40.0-49.9 SNOMED Code(s): 897917366 ICD Code: E66.01 - MORBID (SEVERE) OBESITY DUE TO EXCESS CALORIES Status: Chronic Current Visit: Yes (5) CAD (coronary artery disease) SNOMED Code(s): 28547601 ICD Code: I25.10 - ATHSCL HEART DISEASE OF [place] CORONARY ARTERY W/O ANG PCTRS Status: Chronic Current Visit: Yes Qualifiers: Coronary Disease-Associated Artery/Lesion type: [place] artery [place] vs. transplanted heart: [place] heart Associated angina: without angina Qualified Code(s): I25.10 - Atherosclerotic heart disease of [place] coronary artery without angina pectoris (6) Cholelithiasis with choledocholithiasis SNOMED Code(s): 193880342 ICD Code: K80.70 - CALCULUS OF GB AND BILE DUCT W/O CHOLECYST W/O OBSTRUCTION Status: Ruled-out Current Visit: Yes (7) Choledocholithiasis with obstruction SNOMED Code(s): 4809766 ICD Code: K80.51 - CALCULUS OF BILE DUCT W/O CHOLANGITIS OR CHOLECYST W OBST Status: Acute Current Visit: Yes Qualifiers: Cholecystitis presence: without cholecystitis Qualified Code(s): K80.51 - Calculus of bile duct without cholangitis or cholecystitis with obstruction - Patient Summary/Data Consults: Consultations 11/04/17 17:08 Consult to Physician [CONS] Routine Consulting Provider: Khadar Anna Call Completed to Consulting Physician: Yes Reason for Consult: cholelithiasis and choledocholithiasis Person Notified: RW Date Notified: 11/04/17 Special Instructions: Hanna in the am 11/05/17 11:05 Respiratory Care Assess and Treatment [CONS] Routine Comment: Physician Instructions: Post-Op Pneumonia Prevention Hospital Course: Matilda presented to the emergency room with back pain between her shoulder blades as well as some lower back pain. She thought the pain was the result of a fall a few days prior. She had some associated nausea. Workup in the emergency room included extensive imaging of the cervical and lumbar spine with no acute findings noted. Laboratory studies revealed elevated bilirubin, AST and ALTs. The etiology for these elevations were not entirely clear and she was admitted for further workup. Shortly after admission she developed a fever and empiric Pip/Tazo was initiated with concern for current or recent choledocholithiasis and the potential for ascending cholangitis. The morning after admission we did attempt an MRCP but the patient was claustrophobic and the test was delayed to the afternoon. Repeat labs the morning after admission did show improvement in her bilirubin, AST and ALTs. Symptomatically she was doing well and had not had recurrence of the fever other than the one right after admission. The MRCP completed the afternoon following admission suggested there was a 4 mm stone in the common bile duct. I discussed the case with Dr. Anna with surgical services. He felt that cholecystectomy and bile duct exploration could be completed here. Repeat labs in the next morning (the day of discharge) revealed further improvement in her bilirubin, AST and ALT. Symptomatically she was feeling better. She did have another fever the night prior to discharge. Blood cultures have been negative throughout the course of the hospital stay. On the morning of discharge the patient was taken to the operating room and had a laparoscopic cholecystectomy. Bile duct exploration was able to remove one of the stones but unfortunately a second stone was also noted with intraoperative cholangiogram. The stone was too large to be removed with the equipment here in the hospital. Dr. Anna contacted the gastrointestinal specialist at [facility] and the plan is to transfer her there for ERCP and removal of the second stone. She was moderately hypertensive following the procedure but has responded well to a dose of labetalol and a dose of pain medication. She is stable for transfer and the benefits of transfer far outweigh the risks at this point. She has been treated with empiric antibiotics throughout the course of the hospital stay. As mentioned above cultures have been negative. - Patient Instructions Diet: NPO Activity: No Lifting Over 25 Pounds Showering/Bathing: February Shower Notify Provider of: Fever, Increased Pain, Swelling and Redness, Drainage, Nausea and/or Vomiting - Discharge Plan Home Medications: Home Meds Gabapentin [Neurontin] 300 mg PO BEDTIME 06/25/16 [History] Propranolol [Inderal] 20 mg PO BID 06/25/16 [History] Caffeine [Vivarin] 200 mg PO DAILY 06/28/16 [History] Cholecalciferol (Vitamin D3) [Vitamin D3] 5,000 units PO DAILY 06/28/16 [History ] Latanoprost [Xalatan 0.005% Ophth Soln] 1 drop EYELF DAILY 06/28/16 [History] Mv-Mn/FA/Vit K/Lycop/Lut/Zeaxa [Ocuvite Eye + Multi Tablet] 1 tab PO DAILY 06/28 [History] Aspirin [Low Dose Aspirin EC] 81 mg PO DAILY 11/03/17 [History] Clopidogrel Bisulfate [Clopidogrel] 75 mg PO DAILY 11/03/17 [History] Timolol Maleate [Timolol Maleate] 1 drop EYEBOTH DAILY 11/03/17 [History] atorvaSTATin [Lipitor] 20 mg PO BEDTIME 11/03/17 [History] Referrals: Mikal Mar MD [Primary Care Provider] - (jessica [phone] d ) - Discharge Summary/Plan Comment DC Time >30 min.: Yes (40 - transfer to acute Hospital) - Patient Data Vitals - Most Recent: Last Vital Signs Temp 37.7 C 11/05/17 09:21 Pulse 85 11/05/17 07:08 Resp 18 11/05/17 07:08 BP 150/72 H 11/05/17 07:08 Pulse Ox 92 L 11/05/17 07:08 Weight - Most Recent: 110.677 kg I&O - Last 24 hours: Intake & Output 11/04/17 11/05/17 11/05/17 22:59 06:59 14:59 Intake Total 939 825 Output Total 1000 Balance 939 825 -1000 Lab Results - Last 24 hrs: Laboratory Results - last 24 hr 11/05/17 11/05/17 Range/Units 05:23 05:23 WBC 7.6 (4.5-11.0) K/uL RBC 4.10 (3.30-5.50) M/uL Hgb 12.2 (12.0-15.0) g/dL Hct 38.9 (36.0-48.0) % MCV 95 (80-98) fL MCH 30 (27-31) pg MCHC 31 L (32-36) % Plt Count 234 (150-400) K/uL Sodium 144 (140-148) mmol/L Potassium 4.2 (3.6-5.2) mmol/L Chloride 108 (100-108) mmol/L Carbon Dioxide 28 (21-32) mmol/L Anion Gap 8.5 (5.0-14.0) mmol/L BUN 13 (7-18) mg/dL Creatinine 0.8 (0.6-1.0) mg/dL Est Cr Clr Drug Dosing 50.57 mL/min Estimated GFR (MDRD) > 60 (>60) Glucose 115 H (74-106) mg/dL Calcium 8.6 (8.5-10.1) mg/dL Total Bilirubin 1.2 H D (0.2-1.0) mg/dL AST 65 H (15-37) U/L ALT 208 H (12-78) U/L Alkaline Phosphatase 219 H (46-116) U/L Total Protein 5.9 L (6.4-8.2) g/dL Albumin 2.6 L (3.4-5.0) g/dL Globulin 3.3 (2.3-3.5) g/dL Albumin/Globulin Ratio 0.8 L (1.2-2.2) IRENE Results - Last 24 hrs: Microbiology 11/03/17 14:00 Aerobic Blood Culture - Preliminary Blood - Arm, Right NO GROWTH AFTER 1 DAY Anaerobic Blood Culture - Preliminary NO GROWTH AFTER 1 DAY 11/03/17 13:55 Aerobic Blood Culture - Preliminary Blood - Arm, Left NO GROWTH AFTER 1 DAY Anaerobic Blood Culture - Preliminary NO GROWTH AFTER 1 DAY Med Orders - Current: Current Medications Acetaminophen (Tylenol) 650 mg PO Q4H PRN PRN Reason: Pain (Mild 1-3)/fever Last Admin: 11/04/17 10:39 Dose: 650 mg Aspirin (Halfprin) 81 mg PO DAILY [facility] Last Admin: 11/05/17 09:11 Dose: Not Given Benzocaine/Menthol (Cepacol Sore Throat) 1 lozenge MUCMEM Q1H PRN PRN Reason: Sore Throat Bisacodyl (Dulcolax) 5 mg PO DAILY PRN PRN Reason: Constipation Clopidogrel Bisulfate (Plavix) 75 mg PO Q24H [facility] Docusate Sodium (Colace) 100 mg PO BID PRN PRN Reason: Constipation Fentanyl (Sublimaze) 25 mcg IVPUSH Q1H PRN PRN Reason: Pain (moderate 4-6) Gabapentin (Neurontin) 300 mg PO BEDTIME [facility] Last Admin: 11/04/17 21:01 Dose: 300 mg Hydromorphone HCl (Dilaudid) 0.5 - 1 mg IVPUSH Q2H PRN PRN Reason: Pain (severe 7-10) Last Admin: 11/05/17 13:25 Dose: 1 mg Hydroxyzine HCl (Vistaril) 50 - 100 mg IM Q4H PRN PRN Reason: Nausea Piperacillin/Tazobactam/ (Dextrose 3.375 gm/ Premix) 50 mls @ 100 mls/hr IV Q6H [facility] Last Admin: 11/05/17 08:52 Dose: 100 mls/hr Sodium Chloride (Normal Saline) 1,000 mls @ 75 mls/hr IV ASDIRECTED [facility] Last Admin: 11/05/17 05:55 Dose: 75 mls/hr Ibuprofen (Motrin) 600 mg PO Q6H PRN PRN Reason: Pain/Fever Last Admin: 11/03/17 22:02 Dose: 600 mg Ketorolac Tromethamine (Toradol) 30 mg IM Q6H [facility] Stop: 11/06/17 08:01 Last Admin: 11/05/17 13:28 Dose: 30 mg Labetalol HCl (Normodyne) 5 - 15 mg IVPUSH Q1H PRN PRN Reason: HYPERTENSION IN RECOVERY Stop: 11/05/17 14:45 Latanoprost (Xalatan 0.005% Ophth Soln) 0 ml EYELF BEDTIME [facility] Last Admin: 11/04/17 21:02 Dose: 1 drop Ondansetron HCl (Zofran Odt) 4 mg PO Q6H PRN PRN Reason: Nausea able to take PO Ondansetron HCl (Zofran) 4 mg IV Q6H PRN PRN Reason: Nausea/Vomiting Oxycodone HCl (Oxycodone) 5 mg PO Q4H PRN PRN Reason: Pain (moderate 4-6) Last Admin: 11/03/17 22:02 Dose: 5 mg Oxycodone/Acetaminophen (Percocet 325-10 Mg) 2 tab PO Q4H PRN PRN Reason: Pain (moderate 4-6) Propranolol 20mg ( (Ptom)) 0 each PO BID [facility] Last Admin: 11/05/17 09:11 Dose: Not Given Senna/Docusate Sodium (Senna Plus) 1 tab PO BID PRN PRN Reason: Constipation Sodium Chloride (Saline Flush) 10 ml FLUSH ASDIRECTED PRN PRN Reason: Keep Vein Open Last Admin: 11/03/17 07:22 Dose: 10 ml Timolol Maleate (Timoptic 0.5% Ophth Soln) 0 ml EYEBOTH DAILY [facility] Last Admin: 11/05/17 09:39 Dose: 1 drop Tizanidine HCl (Zanaflex) 2 mg PO Q6H PRN PRN Reason: Muscle Spasm Last Admin: 11/04/17 20:58 Dose: 2 mg Zolpidem Tartrate (Ambien) 5 mg PO BEDTIME PRN PRN Reason: Insomnia Discontinued Medications Bupivacaine HCl (Marcaine 0.5%) Confirm Administered Dose 50 ml .ROUTE .STK-MED ONE Stop: 11/05/17 10:42 Clopidogrel Bisulfate (Plavix) 75 mg PO DAILY [facility] Last Admin: 11/04/17 11:20 Dose: Not Given Dexamethasone (Dexamethasone) Confirm Administered Dose 4 mg .ROUTE .STK-MED ONE Stop: 11/05/17 10:42 Diphenhydramine HCl (Benadryl) 25 mg PO ONETIME ONE Stop: 11/04/17 04:03 Last Admin: 11/04/17 04:19 Dose: 25 mg Ephedrine Sulfate (Ephedrine Sulfate) Confirm Administered Dose 50 mg .ROUTE .STK-MED ONE Stop: 11/05/17 11:44 Fentanyl (Sublimaze) Confirm Administered Dose 250 mcg .ROUTE .STK-MED ONE Stop: 11/05/17 10:42 Glycopyrrolate (Robinul) Confirm Administered Dose 1 mg .ROUTE .STK-MED ONE Stop: 11/05/17 10:42 Hydromorphone HCl (Dilaudid) 0.5 mg IVPUSH ONETIME ONE Stop: 11/03/17 08:43 Last Admin: 11/03/17 08:48 Dose: 0.5 mg Sodium Chloride (Normal Saline) 1,000 mls @ 100 mls/hr IV ASDIRECTED [facility] Last Admin: 11/04/17 01:05 Dose: 100 mls/hr Cefazolin Sodium/Dextrose 2 gm (/ Premix) 50 mls @ 100 mls/hr IV ONETIME ONE Stop: 11/05/17 11:59 Last Admin: 11/05/17 11:05 Dose: 100 mls/hr Metronidazole 500 mg/ Premix 100 mls @ 100 mls/hr IV ONETIME ONE Stop: 11/05/17 12:29 Last Admin: 11/05/17 11:20 Dose: 100 mls/hr Lactated Ringer's (Ringers, Lactated) Confirm Administered Dose 1,000 mls @ as directed .ROUTE .ST-MED ONE Stop: 11/05/17 11:56 Ketorolac Tromethamine (Toradol) 15 mg IVPUSH ONETIME ONE Stop: 11/03/17 06:59 Last Admin: 11/03/17 07:24 Dose: 15 mg Labetalol HCl (Normodyne) Confirm Administered Dose 20 mg .ROUTE .STK-MED ONE Stop: 11/05/17 13:26 Lidocaine/Epinephrine (Xylocaine 1% With Epinephrine 1:100,000) Confirm Administered Dose 50 ml .ROUTE .STK-MED ONE Stop: 11/05/17 10:42 Lorazepam (Ativan) 1 mg PO ONETIME ONE Stop: 11/04/17 14:01 Last Admin: 11/04/17 13:58 Dose: 1 mg Neostigmine Methylsulfate (Neostigmine) Confirm Administered Dose 5 mg .ROUTE .STK-MED ONE Stop: 11/05/17 10:42 Ondansetron HCl (Zofran) Confirm Administered Dose 4 mg .ROUTE .STK-MED ONE Stop: 11/05/17 10:42 Potassium Chloride (Klor-Con M20) 40 meq PO ONETIME ONE Stop: 11/04/17 17:01 Last Admin: 11/04/17 17:13 Dose: 40 meq Propofol (Diprivan 20 Ml) Confirm Administered Dose 200 mg .ROUTE .STK-MED ONE Stop: 11/05/17 10:42 Rocuronium [place] (Zemuron) Confirm Administered Dose 50 mg .ROUTE .[facility]-MED ONE Stop: 11/05/17 10:42 Succinylcholine Chloride (Quelicin) Confirm Administered Dose 200 mg .ROUTE .[facility] -MED ONE Stop: 11/05/17 10:42 - Exam Quality Assessment: Denies: Supplemental Oxygen General: Reports: Alert, Oriented, Cooperative, No Acute Distress Lungs: Reports: Normal Respiratory Effort GI/Abdominal Exam: Soft, No Distention Extremities: No Pedal Edema Psy/Mental Status: Reports: Alert, Normal Affect *Q Meaningful Use (DIS) - VTE *Q VTE Criteria *Q: - Stroke *Q Stroke Criteria *Q: - AMI *Q AMI Criteria *Q:
[2017-11-05] MEDS ORDERED: Ketorolac 30 MG/ML SDV IM SCH (14:00)
[2017-11-05] MEDS ORDERED: Clopidogrel 75 MG Tab (PTOM) PO SCH (16:00)
--- NOTE | 2017-11-05 18:14 | CONS ---
DATE OF SERVICE: 11/05/2017 REFERRING PHYSICIAN: CONSULTING PHYSICIAN: Khadar Anna MD Consultation from Dr. Yuen. REASON FOR CONSULTATION: Evaluation of abnormal liver function tests. HISTORY OF PRESENT ILLNESS: This is a pleasant 72-year-old whom I am consulted for evaluation of elevated liver function tests which include elevated bilirubin on 11/03 of 3.5. AST and ALT were elevated along with an alkaline phosphatase of 290. The patient reports back pain and diffuse abdominal pain which is 3 to 4 and which is constant. This is associated with nausea. The patient underwent significant imaging recently including evaluation of cervical and head CT scans. This is also slightly convoluted by the fact that she fell recently. PAST MEDICAL HISTORY: COPD, history of kidney stones, hypertension, coronary stents which were placed approximately two years ago, hypercholesterolemia, depression, and smoking. SOCIAL HISTORY: She does not smoke. FAMILY HISTORY: No family history of gallbladder cancer. REVIEW OF SYSTEMS: GENERAL: The patient is appropriate for her condition. HEENT: No significant symptoms. CARDIOVASCULAR: Stenting as described above; however, no recent extensive cardiac history. RESPIRATORY: COPD, but no current smoking. GASTROINTESTINAL: No acholic stools. GENITOURINARY: No dysuria. PSYCHIATRIC: No significant changes. NEUROLOGICAL: As above. The remainder of the review of systems is reviewed and is negative. PHYSICAL EXAMINATION: VITAL SIGNS: Temperature 99.9, blood pressure 150/72, and pulse 85. HEENT: Pupils are equal. NECK: Supple. LUNGS: Clear. ABDOMEN: Bowel sounds positive. Pain with palpation, right upper quadrant, mild. EXTREMITIES: Full range of motion. NEUROLOGICAL: Oriented x3. PSYCHIATRIC: No gross depression. LABORATORY RESULTS: As above. ASSESSMENT: 1. Cholelithiasis. 2. Choledocholithiasis. PLAN: I did discuss this with Dr. Yuen on November 04; however, on November 05, we will take the patient to the operating room for laparoscopic cholecystectomy with common bile duct exploration. We discussed risks, benefits, alternatives, and limitations including, but not limited to infection, bleeding, and perforation. They understand these risks and wish to proceed. We discussed in detail injury to intestines, common bile duct injuries as far as the requirements to remove the stone, cystic duct leaks, the requirement of open surgery, and other risks not listed here. The patient discussed the role of ERCP. The patient understands these risks and wishes to proceed. Khadar Anna MD /[id number]
--- NOTE | 2017-11-07 09:39 | MR ---
Cholangiopancreatography INDICATION: RUQ pain, cholelithiasis COMPARISON: Ultrasound 11/03/2017. FINDINGS: Small stones in the gallbladder measuring up to 8 mm in size. 7 mm filling defect in the di stal common bile duct best visualized on series 7 image 35 suspicious for choledocholithiasis. Common bile duct is at the upper limits of normal measuring 7 mm. The pancreatic duct is normal in caliber. No intrahepatic bile duct dilatation. Exam otherwise unremarkable. IMPRESSION: 1. 7 mm filling defect in the distal common bile duct suspicious for choledocholithiasis. ERCP is rec ommended. 2. Cholelithiasis.
--- NOTE | 2017-11-07 10:02 | CR ---
Fluoro Up To 1Hr INDICATION: CBD exploration FINDINGS: Fluoroscopic spot images during ERCP. There are 2, and possibly 3 filling defects in the di stal common bile duct suspicious for calculi. Please see surgeon's notes for details.
--- NOTE | 2017-11-15 09:21 | OR ---
DATE OF PROCEDURE: 11/05/2017 PREOPERATIVE DIAGNOSIS: Cholelithiasis, cholecystitis and choledocholithiasis. POSTOPERATIVE DIAGNOSIS: Cholelithiasis, cholecystitis and choledocholithiasis. PROCEDURES: 1. Laparoscopic cholecystectomy with common bile duct exploration (09144). 2. Stone extraction (69719). 3. Sphincteroplasty (22407). FINDINGS: Three large stones in common bile duct without evidence of obstructive flow. COMPLICATIONS: None. 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 ANESTHESIA: General/local. INDICATIONS: A pleasant 72-year-old female with cholelithiasis, cholecystitis and choledocholithiasis. RISKS: Risks, benefits, alternatives, limitations including, but not limited to infection, bleeding, injury to abdominal structures such as bowel or bladder. We discussed common bile duct exploration, the high risks aspect of the surgery which can include injury to common bile duct or cystic duct leaks. The patient understands these risks and wished to proceed. PROCEDURE IN DETAIL: The patient was placed in supine position. A supraumbilical curvilinear incision was made. A Veress needle was used to enter the abdomen without abnormality. A drop test was performed without abnormality. The abdomen was subsequently insufflated with the Veress needle and then followed by an Optiview trocar. No evidence of traumatic injuries noted during entry. During the procedure, 2 additional 5 mm ports were entered along with a 10 mm port and an additional 5 mm port was entered during the common bile duct exploration phase. Once these ports were all entered under direct visualization, the gallbladder was retracted cephalad and the infundibulum was retracted inferolaterally. Using blunt dissection, "clear view" of the gallbladder will be obtained with a single pulsatile structure in the gallbladder and a single nonpulsatile structure in the gallbladder. The cystic duct was nicked intentionally allowing access to the CBD. This was accessed using a slick guidewire. This was then exchanged for a dilating balloon. Cholangiogram was performed through this balloon. The patient noted to have 3 large stones. Saline injection was then performed. The sphincter was subsequently dilated during the sphincteroplasty. It was evident that the stone was rather large and a basket was then used. The basket was able to be extracted one in three stones. However, due to the shear size and the limit of our baskets present, only 1 stone was able to be retrieved out of the 3. Therefore, at this time the common bile duct exploration was then completed. The cystic duct was closed with 3 clips and these were noted to be completely across the cystic duct. The remaining 1/3rd of the gallbladder was removed off the gallbladder bed and the artery was subsequently transected and clipped. The gallbladder was delivered to the superior port. The liver bed was inspected for bleeding of which none was noted. This was again thoroughly irrigated. No other abnormalities noted. The air was removed. The wounds were closed with 3-0 Vicryl and 4-0 Vicryl in interrupted running fashion. Dermabond was applied. The patient was sent for common bile duct stone removal via ERCP. Khadar Anna MD /[id number]
== END 2017-11-05 14:20 ==
LOC: JP.ED 06:20 → JP.MS 11:20
PROVIDERS: ADMIT Internal Medicine; ATTEND Internal Medicine
DX: K80.12 Calculus of gallbladder with acute and chronic cholecystitis without obstruction (principal); R79.89 Other specified abnormal findings of blood chemistry; E80.6 Other disorders of bilirubin metabolism; I25.10 Atherosclerotic heart disease of native coronary artery without angina pectoris; I10 Essential (primary) hypertension; E78.00 Pure hypercholesterolemia, unspecified; J44.9 Chronic obstructive pulmonary disease, unspecified; F32.9 Major depressive disorder, single episode, unspecified; E66.01 Morbid (severe) obesity due to excess calories; Z88.8 Allergy status to other drugs, medicaments and biological substances; Z91.018 Allergy to other foods; Z88.1 Allergy status to other antibiotic agents; Z79.82 Long term (current) use of aspirin; Z79.899 Other long term (current) drug therapy; Z95.5 Presence of coronary angioplasty implant and graft; Z68.41 Body mass index [BMI] 40.0-44.9, adult
CPT/HCPCS: 36415; 47562; 70450; 72125; 72131; 74181; 76000; 76705; 80053; 81001; 85027; 87040; 88304; 96361; 96365; 96366; 96375; 99285; A9270; C1894; G0378; J0330; J0690; J1100; J1170; J1885; J2405; J2543; J2704; J2710; J3010; J7040; J7050; J7120; 96374; 99217; 99219; 99224; J7030

== ENCOUNTER 2017-11-19 22:34 | Emergency (ER) | payer MEDICARE ==
[2017-11-19] MEDS ORDERED: Albuterol/Ipratropium 3.0-0.5 MG/3 ML Neb Soln NEB ONE (23:17)
--- NOTE | 2017-11-19 23:28 | EDM.PDOC ---
ED HPI GENERAL MEDICAL PROBLEM - General Chief Complaint: Respiratory Problem Stated Complaint: SOB Time Seen by Provider: 11/19/17 23:00 Source of Information: Reports: Patient, Family History Limitations: Reports: No Limitations - History of Present Illness INITIAL COMMENTS - FREE TEXT/NARRATIVE: 72-year-old female who had an extended postoperative course after a cholecystectomy was discharged from the hospital yesterday, tonight became short of breath and was concerned about peripheral edema and fluid in her lungs. She does use oxygen chronically at home. She scared her family so they brought her in for an evaluation. She denies any chest pain, she has a "stitch of pain" that waxes and wanes in the right upper quadrant. Bowels are active, no nausea or vomiting. Denies a cough or fever. Onset: Unknown/Unsure Severity: Mild Worsens with: Reports: Other (Seems to have a lot of underlying anxiety) Associated Symptoms: Reports: Malaise, Shortness of Breath, Other (Peripheral edema). Denies: Confusion, Cough, Fever/Chills Right Chest Pain Score (Numeric/FACES): 3 - Related Data Allergies Allergy/AdvReac Type Severity Reaction Status Date / Time broccoli Allergy Other Verified 11/19/17 22:46 buspirone [From BuSpar] Allergy Cannot Verified 11/19/17 22:46 Remember doxycycline Allergy Cannot Verified 11/19/17 22:46 Remember paroxetine [From Paxil] Allergy Cannot Verified 11/19/17 22:46 Remember venlafaxine [From Effexor] Allergy Cannot Verified 11/19/17 22:46 Remember lisinopril AdvReac Cough Verified 11/19/17 22:46 scopolamine AdvReac Hallucinati Verified 11/19/17 22:46 ons SHRIMP FLAVOR Allergy Nausea and Uncoded 11/19/17 22:46 Vomiting Home Meds: Home Meds Gabapentin [Neurontin] 300 mg PO DAILY 06/25/16 [History] Propranolol [Inderal] 20 mg PO BID 06/25/16 [History] Cholecalciferol (Vitamin D3) [Vitamin D3] 5,000 units PO DAILY 06/28/16 [History ] Latanoprost [Xalatan 0.005% Ophth Soln] 1 drop EYEBOTH DAILY 06/28/16 [History] Aspirin [Low Dose Aspirin EC] 81 mg PO DAILY 11/03/17 [History] Clopidogrel Bisulfate [Clopidogrel] 75 mg PO DAILY 11/03/17 [History] Timolol Maleate [Timolol Maleate] 1 drop EYEBOTH DAILY 11/03/17 [History] atorvaSTATin [Lipitor] 20 mg PO BEDTIME 11/03/17 [History] Acetaminophen [Acetaminophen Extra Strength] 1,000 mg PO TID PRN 11/19/17 [ History] Furosemide [Furosemide] 40 mg PO DAILY 11/19/17 [History] Lactulose [Lactulose] 30 ml PO BID 11/19/17 [History] Magnesium Oxide [Magnesium] 500 mg PO BID 11/19/17 [History] Potassium Chloride [Klor-Con M20] 40 meq PO DAILY 11/19/17 [History] Past Medical History Cardiovascular History: Reports: High Cholesterol, Hypertension, Stents Respiratory History: Reports: COPD Genitourinary History: Reports: Renal Calculus COLLAR TACKER History: Reports: Neurological History: Reports: Other (See Below) Other Neuro History: tremor Psychiatric History: Reports: Depression Endocrine/Metabolic History: Reports: Obesity/BMI 30+ - Infectious Disease History Infectious Disease History: Reports: C-Difficile, Measles, Mumps - Past Surgical History HEENT Surgical History: Reports: Cataract Surgery GI Surgical History: Reports: Cholecystectomy Other Musculoskeletal Surgeries/Procedures:: R HAND, 2ND DIGIT FX Social & Family History - Family History Cardiac: Reports: Aneurysm GI: Reports: Cholelithiasis Endocrine/Metabolic: Reports: Diabetes, type II - Tobacco Use Smoking Status *Q: Never Smoker Years of Tobacco use: 50 Packs/Tins Daily: 0.5 Used Tobacco, but Quit: Yes Month Tobacco Last Used: September 2016 Second Hand Smoke Exposure: No - Caffeine Use Caffeine Use: Reports: None - Recreational Drug Use Recreational Drug Use: No ED ROS GENERAL - Review of Systems Review Of Systems: See Below Constitutional: Reports: Malaise, Weakness. Denies: Fever, Chills HEENT: Reports: No Symptoms Respiratory: Reports: Shortness of Breath. Denies: Cough Cardiovascular: Denies: Chest Pain, Palpitations GI/Abdominal: Reports: Abdominal Pain. Denies: Constipation, Nausea, Vomiting : Reports: No Symptoms Skin: Reports: Other (Surgical incisions are healing nicely) Neurological: Denies: Headache Psychiatric: Reports: Anxiety ED EXAM, GENERAL - Physical Exam Exam: See Below Exam Limited By: No Limitations General Appearance: Alert, Anxious Eye Exam: Bilateral Eye: Normal Inspection Head: Atraumatic Respiratory/Chest: Decreased Breath Sounds (She has diffuse decreased breath sounds, and a few extreme basilar crackles but mostly clear) Cardiovascular: Regular Rate, Rhythm GI/Abdominal: Other (Abdomen is obese, some mild palpation tenderness) Extremities: Pedal Edema (She has 1+ pitting edema bilaterally) Neurological: Alert, Oriented Psychiatric: Anxious Skin Exam: Warm, Dry Course - Vital Signs Last Recorded V/S: Last Vital Signs Temp 98.6 F 11/19/17 23:03 Pulse 79 11/19/17 23:03 Resp 24 H 11/19/17 23:03 BP 151/72 H 11/19/17 23:03 Pulse Ox 96 11/19/17 23:03 - Orders/Labs/Meds Orders: Active Orders 24 hr Category Date Time Status RT Aerosol Therapy [RC] ASDIRECTED Care 11/19/17 23:17 Active Chest 2V [CR] Routine Exams 11/19/17 23:17 Taken Meds: Medications Discontinued Medications Generic Name Dose Route Start Last Admin Trade Name Miriam PRN Reason Stop Dose Admin Albuterol/Ipratropium 3 ml 11/19/17 23:17 11/19/17 23:43 Duoneb 3.0-0.5 Mg/3 Ml NEB 11/19/17 23:18 3 ml ONETIME ONE Administration - Re-Assessments/Exams Free Text/Narrative Re-Assessment/Exam: 11/19/17 23:28 The patient felt that nebulizers while in the hospital was very beneficial. Her O2 saturations were 96% on 2 L which is the amount of oxygen she uses at home. A two-view chest x-ray was obtained and the patient was then given a DuoNeb. 11/19/17 23:47 Patient's chest x-ray looks extremely good, no evidence of heart failure, infiltrates or cardiomegaly. Patient continued to calm down and feel much better. There is almost certainly an anxiety component to her symptoms. She did feel the DuoNeb helped her, so she will be discharged with a new inhaler and Ativan. She has follow-up visits on and Tuesday, she can return sooner if she feels she is worsening. Departure - Departure Time of Disposition: 23:30 Disposition: Home, Self-Care 01 Condition: Fair Clinical Impression: Anxiety about health, Shortness of breath - Discharge Information Instructions: Shortness of Breath, [id number] Referrals: Mikal Mar MD [Primary Care Provider] - Forms: ED Department Discharge Care Plan Goals: Continue your current medications, avoid extra salt intake and a regular dose of acetaminophen every 6-8 hours for pain should help. Use the new inhaler every 3-4 hours for wheezing or shortness of breath, and Ativan for anxiety up to 3 times daily. Return to ER if worsening or concerns. - My Orders Last 24 Hours: My Active Orders 11/19/17 23:17 RT Aerosol Therapy [RC] ASDIRECTED Chest 2V [CR] Routine - Assessment/Plan Last 24 Hours: My Active Orders 11/19/17 23:17 RT Aerosol Therapy [RC] ASDIRECTED Chest 2V [CR] Routine
--- NOTE | 2017-11-21 10:21 | CR ---
Mild cardiomegaly. Tortuous aorta. No focal consolidation.
== END 2017-11-20 00:25 | disposition home or self-care (01) ==
LOC: JP.ED 22:34
DX: R06.02 Shortness of breath (principal); F41.9 Anxiety disorder, unspecified; I10 Essential (primary) hypertension; E78.00 Pure hypercholesterolemia, unspecified; J44.9 Chronic obstructive pulmonary disease, unspecified; Z87.891 Personal history of nicotine dependence; Z79.82 Long term (current) use of aspirin; Z79.02 Long term (current) use of antithrombotics/antiplatelets; Z79.899 Other long term (current) drug therapy; Z88.8 Allergy status to other drugs, medicaments and biological substances; Z88.1 Allergy status to other antibiotic agents; Z91.018 Allergy to other foods; Z91.013 Allergy to seafood
CPT/HCPCS: 71046; 71046-26; 94640; 99285-25; J7620

== ENCOUNTER 2017-12-12 06:43 | Day surgery (SDC) | payer MEDICARE, OTHER ==
[2017-12-12] MEDS ORDERED: Midazolam 1 MG/ML 2 ML SDV ONE (07:29)
[2017-12-12] MEDS ORDERED: fentaNYL 100 MCG/2 ML SDV ONE (07:29)
[2017-12-12] MEDS ORDERED: Propofol 200 MG/20 ML SDV ONE (07:29)
[2017-12-12] MEDS ORDERED: Lactated Ringers 1,000 ML IV SCH (07:30)
--- NOTE | 2017-12-12 15:36 | OR ---
DATE OF PROCEDURE: 12/12/2017 PREOPERATIVE DIAGNOSIS: Blood in the stool. POSTOPERATIVE DIAGNOSES: 1. Pandiverticulosis. 2. Small colon polyp 40 cm from the anal verge. PROCEDURE: Colonoscopy to the cecum with biopsy and resection of small colon polyp 40 cm from the anal verge. ANESTHESIA: IV anesthesia with monitored anesthesia care. INDICATION: This 72-year-old white female is referred for a colonoscopy because of blood in her stool. She apparently had a complicated cholecystectomy process. In addition to the cholecystectomy, she had to have cholangio stents placed. She then had some blood in her stool. This appears to have resolved, but she is referred for a colonoscopy because of the blood in her stool. Her last colonoscopic exam, she says, was done in 2009. I counseled her for the procedure, and she gave her informed consent to proceed. DESCRIPTION OF PROCEDURE: The patient was placed in the left lateral decubitus position. IV anesthesia was administered by Anesthesia Service. Time-out was held. A rectal exam was performed, which was unremarkable. The flexible video Olympus colonoscope was introduced through her anus, up her rectum, and out her colon, all the way to the cecum. En route, we saw both right and left-sided diverticula. There was no bleeding or inflammation associated with any of them. Once the cecum was reached, the scope was slowly withdrawn, examining the mucosa throughout. No additional mucosal abnormalities were noted until we reached 40 cm from the anal verge. Here, a small polyp was seen, which was removed with several bites of the biopsy forceps. The scope was withdrawn further, with no other new lesions noted. The scope was retroflexed in the rectum, with the distal rectum appearing unremarkable. The scope was straightened and removed. She tolerated the procedure well. Pete Bain MD /[id number]
== END 2017-12-12 09:55 | disposition home or self-care (01) ==
LOC: JP.SDS 06:43
PROVIDERS: ATTEND Surgery
DX: D12.6 Benign neoplasm of colon, unspecified (principal); K57.30 Diverticulosis of large intestine without perforation or abscess without bleeding; I10 Essential (primary) hypertension; I25.10 Atherosclerotic heart disease of native coronary artery without angina pectoris; J44.9 Chronic obstructive pulmonary disease, unspecified; Z88.1 Allergy status to other antibiotic agents; Z88.8 Allergy status to other drugs, medicaments and biological substances; Z91.018 Allergy to other foods; Z91.048 Other nonmedicinal substance allergy status; Z91.013 Allergy to seafood
CPT/HCPCS: 45380; 88305; J2250; J2704; J3010; J7120

== ENCOUNTER 2018-07-02 10:28 | Emergency (ER) | payer MEDICARE ==
[2018-07-02] MEDS ORDERED: Diazepam 5 MG Tab PO ONE (11:24)
[2018-07-02] MEDS ORDERED: HYDROmorphone 1 MG/ML Syringe IM ONE (11:24)
--- NOTE | 2018-07-02 11:34 | EDM.PDOC ---
ED HPI GENERAL MEDICAL PROBLEM - General Chief Complaint: Back Pain or Injury Stated Complaint: SWOLLEN RT LEG Time Seen by Provider: 07/02/18 11:15 Source of Information: Reports: Patient History Limitations: Reports: No Limitations - History of Present Illness INITIAL COMMENTS - FREE TEXT/NARRATIVE: Matilda is a 72 year old female who presents to the ED today with her daughter with an exacerbation of her chronic lower back pain. Patient has been helping her sister at home as she was recently diagnosed with osteomyelitis. Patient c/ o pain to her lower lumbar region that radiates down both buttock areas and down right leg. Patient denies any loss of bowel/bladder. She denies any unilateral leg weakness. Patient has been taking Tylenol and Gabapentin without relief. Onset: Gradual Duration: Day(s): (3) Back Pain Score (Numeric/FACES): 10 - Related Data Allergies Allergy/AdvReac Type Severity Reaction Status Date / Time adhesive tape Allergy Blisters Verified 07/02/18 10:40 broccoli Allergy Other Verified 07/02/18 10:40 buspirone [From BuSpar] Allergy Cannot Verified 07/02/18 10:40 Remember doxycycline Allergy Cannot Verified 07/02/18 10:40 Remember paroxetine [From Paxil] Allergy Cannot Verified 07/02/18 10:40 Remember venlafaxine [From Effexor] Allergy Cannot Verified 07/02/18 10:40 Remember lisinopril AdvReac Cough Verified 07/02/18 10:40 scopolamine AdvReac Hallucinati Verified 07/02/18 10:40 ons SHRIMP FLAVOR Allergy Nausea and Uncoded 07/02/18 10:40 Vomiting Home Meds: Home Meds Gabapentin [Neurontin] 300 mg PO TID 06/25/16 [History] Propranolol [Inderal] 20 mg PO BID 06/25/16 [History] Cholecalciferol (Vitamin D3) [Vitamin D3] 5,000 units PO DAILY 06/28/16 [History ] Latanoprost [Xalatan 0.005% Ophth Soln] 1 drop EYEBOTH DAILY 06/28/16 [History] Aspirin [Low Dose Aspirin EC] 81 mg PO DAILY 11/03/17 [History] Clopidogrel Bisulfate [Clopidogrel] 75 mg PO DAILY 11/03/17 [History] Timolol Maleate 1 drop EYEBOTH BID 11/03/17 [History] atorvaSTATin [Lipitor] 40 mg PO BEDTIME 11/03/17 [History] Acetaminophen [Acetaminophen Extra Strength] 1,000 mg PO TID PRN 11/19/17 [ History] Magnesium Oxide [Magnesium] 500 mg PO BID 11/19/17 [History] Albuterol Sulfate [Proair Hfa] 1 - 2 puff PO Q4H PRN 12/08/17 [History] Tiotropium [Spiriva HandiHaler] 1 cap PO DAILY 12/08/17 [History] Past Medical History HEENT History: Reports: Glaucoma Cardiovascular History: Reports: CAD, Heart Failure, High Cholesterol, Hypertension, Stents Respiratory History: Reports: COPD Gastrointestinal History: Reports: Cholelithiasis, Hemorrhoids Genitourinary History: Reports: Renal Calculus 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: Musculoskeletal History: Reports: Back Pain, Chronic, Osteoarthritis Neurological History: Reports: Seizure, Other (See Below) Other Neuro History: tremor Psychiatric History: Reports: Depression, Panic Attack Endocrine/Metabolic History: Reports: Obesity/BMI 30+ - Infectious Disease History Infectious Disease History: Reports: C-Difficile, Measles, Mumps - Past Surgical History Head Surgeries/Procedures: Reports: None HEENT Surgical History: Reports: Cataract Surgery, Tonsillectomy Cardiovascular Surgical History: Reports: Coronary Artery Stent, Percutaneous Transluminal Angioplasty Respiratory Surgical History: Reports: None GI Surgical History: Reports: Appendectomy, Cholecystectomy, Colonoscopy Female Surgical History: Reports: None Endocrine Surgical History: Reports: None Neurological Surgical History: Reports: None Other Musculoskeletal Surgeries/Procedures:: R HAND, 2ND DIGIT FX Dermatological Surgical History: Reports: None Social & Family History - Family History Family Medical History: Noncontributory Cardiac: Reports: Aneurysm GI: Reports: Cholelithiasis Endocrine/Metabolic: Reports: Diabetes, type II - Tobacco Use Smoking Status *Q: Former Smoker Used Tobacco, but Quit: Yes Month/Year Tobacco Last Used: 2 years - Caffeine Use Caffeine Use: Reports: None Other Caffeine Use: pill form caffine - Recreational Drug Use Recreational Drug Use: No ED ROS GENERAL - Review of Systems Review Of Systems: ROS reveals no pertinent complaints other than HPI. ED EXAM,LOWER BACK PAIN/INJURY - Physical Exam Exam: See Below Exam Limited By: No Limitations General Appearance: Alert, WD/WN, No Apparent Distress Head: Atraumatic Neck: Normal Inspection Respiratory/Chest: No Respiratory Distress, Lungs Clear Cardiovascular: Normal Peripheral Pulses, Regular Rate, Rhythm, No Murmur GI/Abdominal: Normal Bowel Sounds, Soft, Non-Tender, Other (obese) Extremities: Normal Inspection, Other (tenderness to bilateral calf, negative cornelio's sign, no unilateral leg swelling, no erythema or warmth) Neurological: Alert, Normal Mood/Affect, CN II-XII Intact, Normal Plantar Flexion, Oriented x 3 DTR - Lower Extremities: 2+: Knee (R), Knee (L) Psychiatric: Normal Affect, Normal Mood Skin Exam: Warm, Dry, Intact Lymphatic: No Adenopathy Course - Vital Signs Last Recorded V/S: Last Vital Signs Temp 36.4 C 07/02/18 10:47 Pulse 62 07/02/18 10:47 Resp 18 07/02/18 10:47 BP 144/69 H 07/02/18 10:47 Pulse Ox 90 L 07/02/18 10:47 Matilda is a 72 year old female with a hx of lumbar disc issues at L4 and L5 who presents to the ED today with her daughter with increasing back and right leg pain unrelieved with Tylenol and Gabapentin at home. Patient denies any trauma/injury but has been more active recently caring for her sister who is sick. Patient with regard to her right leg pain has no findings that are concerning for DVT, she is currently on Plavix for stent placement making this unlikely. Patient has lumbar tenderness on exam into right buttock, consistent with lumbar radiculopathy. Patient does not exhibit any signs concerning for cauda equina. I discussed with patient a course of Prednisone given her significant inflammation, she has no interest in taking this as it makes her gain "a ton of weight". Patient is not currently on any opioid pain medication. I gave her a shot of Dilaudid here in the ED along with 5 mg of oral Valium which did improve her pain. I will send her home with additional Oxycodone that she can take if her Tylenol is ineffective. Patient can continue with Gabapentin, topical lidocaine. I want her to keep her primary care appt for Tuesday for follow up. I did encourage patient to obtain a neurosurgery referral. Opioid side effects and safety were discussed in detail. Patient has been made well aware she cannot drive on this medication, daughter will drive her home today. Patient was instructed to get up slowly and be careful until she knows how the Oxycodone will affect her. Reasons to return to the ED were discussed with patient and daughter in detail. Patient agreeable to plan of care and discharged in stable condition. - Orders/Labs/Meds Meds: Medications Discontinued Medications Generic Name Dose Route Start Last Admin Trade Name Miriam PRN Reason Stop Dose Admin Diazepam 5 mg 07/02/18 11:24 07/02/18 11:42 Valium. PO 07/02/18 11:25 5 mg ONETIME ONE Administration Hydromorphone HCl 1 mg 07/02/18 11:24 07/02/18 11:42 Dilaudid IM 07/02/18 11:25 1 mg ONETIME ONE Administration Departure - Departure Time of Disposition: 12:00 Disposition: Home, Self-Care 01 Condition: Good Clinical Impression: Lumbar pain with radiation down right leg - Discharge Information *PRESCRIPTION DRUG MONITORING PROGRAM REVIEWED*: Yes *COPY OF PRESCRIPTION DRUG MONITORING REPORT IN PATIENT [place]: No Instructions: Oxycodone tablets or capsules, Chronic Back Pain Referrals: Abdirahman Jade MD [Primary Care Provider] - Forms: ED Department Discharge Additional Instructions: Matilda, You can continue with your Tylenol and Gabapentin as prescribed. You can continue to use the topical lidocaine. Take the Oxycodone as needed for severe pain, you cannot drive or drink alcohol if you take this. Keep Tuesday's appt. You can try alternating ice/heat to back. Discuss at Tuesday's appt getting to see a neurosurgeon for your back.
== END 2018-07-02 12:22 | disposition home or self-care (01) ==
LOC: JP.ED 10:28
DX: M54.5 Low back pain (principal); E11.9 Type 2 diabetes mellitus without complications; I11.0 Hypertensive heart disease with heart failure; I50.9 Heart failure, unspecified; E78.00 Pure hypercholesterolemia, unspecified; Z87.891 Personal history of nicotine dependence; Z79.82 Long term (current) use of aspirin; Z79.899 Other long term (current) drug therapy; Z88.1 Allergy status to other antibiotic agents; Z91.09 Other allergy status, other than to drugs and biological substances; Z88.8 Allergy status to other drugs, medicaments and biological substances
CPT/HCPCS: 96372; 99283; A9270; J1170

== ENCOUNTER 2021-05-31 20:10 | Inpatient (IN) | payer MEDICARE ==
[2021-05-31] MEDS ORDERED: HYDROmorphone 0.5 MG/0.5 ML Syringe IM ONE (20:37)
--- NOTE | 2021-05-31 22:06 | CRLCT ---
For Patients: As a result of the Century Cures Act, medical imaging exams and procedure reports are released immediately into your electronic medical record. You may view this report before your referring provider. If you have questions, please contact your health care provider. Indication: Acute right lower extremity pain Technique: Noncontrast CT pelvis Please note that all CT scans at this facility use dose modulation, iterative reconstruction, and/or weight-based dosing when appropriate to reduce radiation dose to as low as reasonably achievable. Comparison: None Findings: No fracture. Normal nutrient foramen right iliac bone. Intact femoral neck. No intrinsic lesion. Degenerative changes. Vascular calcifications. Normal uterus, ovaries and bladder. Sigmoid diverticulosis. Fluid collection about the greater trochanters bilaterally. Impression: Bilateral greater trochanteric bursitis, right greater than left. No sign of acute injury. Please note that all CT scans at this facility use dose modulation, iterative reconstruction, and/or weight-based dosing when appropriate to reduce radiation dose to as low as reasonably achievable. Dictated by Darell Fisher MD @ 05/31/2021 10:06:[address] Darell Fisher @ May 31 2021 10:06PM
--- NOTE | 2021-05-31 22:12 | CRLCT ---
For Patients: As a result of the Century Cures Act, medical imaging exams and procedure reports are released immediately into your electronic medical record. You may view this report before your referring provider. If you have questions, please contact your health care provider. Indication: Low back pain, severe right-sided pain Technique: Noncontrast CT lumbar spine Please note that all CT scans at this facility use dose modulation, iterative reconstruction, and/or weight-based dosing when appropriate to reduce radiation dose to as low as reasonably achievable. Comparison: None Findings: No compression fracture. No pars defects. Grade 1 degenerative spondylolisthesis L4 on L5. Multilevel degenerative disc disease and facet arthrosis. Dense vascular calcifications. No paraspinal soft tissue mass. Right lateral disc herniation L4-5 with stenosis of the right L4-5 foramen. Impression: No fracture. Right lateral disc herniation L4-5 with severe right foraminal stenosis. Please note that all CT scans at this facility use dose modulation, iterative reconstruction, and/or weight-based dosing when appropriate to reduce radiation dose to as low as reasonably achievable. Dictated by Darell Fisher MD @ 05/31/2021 10:12:[address] Darell Fisher @ May 31 2021 10:12PM
--- NOTE | 2021-05-31 22:26 | EDM.PDOC ---
ED HPI GENERAL MEDICAL PROBLEM - General Chief Complaint: Lower Extremity Injury/Pain Stated Complaint: MEDICAL VIA GODWIN Time Seen by Provider: 05/31/21 20:23 Source of Information: Reports: Patient, EMS History Limitations: Reports: No Limitations - History of Present Illness INITIAL COMMENTS - FREE TEXT/NARRATIVE: Matilda is a 75-year-old female who presents with [facility] for evaluation of severe bilateral lower extremity pain. The patient has had ongoing issues with low back pain and spinal stenosis but is usually having right-sided lower extremity pain. The left lower extremity started become more painful several days ago to the point where she is not able to sleep. Today she was unable to make it to the bathroom because of mobility issues. She denies any trauma or falls. She does have a history for moderate spinal stenosis at L3-L4 and moderate to severe spinal stenosis at L4-L5 with severe right-sided neuroforaminal stenosis and moderate left neuroforaminal stenosis from MRI that was done prior. The patient was seen by neurosurgery through [facility] and evaluated for surgical options. They felt that with her comorbidities she was not a surgical candidate and they did not have anything to offer her. She has been seen technical healthcare consultant and getting manipulations for bilateral sacroiliac somatoform dysfunction. She has past medical history also significant for coronary artery disease, atherosclerosis of the aorta, hypertension, and morbid obesity. Her BMI is 42.7. The patient lives at home alone. 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: Acetaminophen, Heat Therapy, NSAIDS Left Hip Pain Score (Numeric/FACES): 10 - Related Data Allergies Allergy/AdvReac Type Severity Reaction Status Date / Time adhesive tape Allergy Blisters Verified 05/31/21 21:15 broccoli Allergy Other Verified 05/31/21 21:15 buspirone [From BuSpar] Allergy Cannot Verified 05/31/21 21:15 Remember doxycycline Allergy Cannot Verified 05/31/21 21:15 Remember latex Allergy Other Verified 05/31/21 21:15 loratadine [From Claritin] Allergy Cannot Verified 05/31/21 21:15 Remember paroxetine [From Paxil] Allergy Cannot Verified 05/31/21 21:15 Remember tizanidine Allergy Other Verified 05/31/21 21:15 venlafaxine [From Effexor] Allergy Cannot Verified 05/31/21 21:15 Remember aspartame AdvReac Confusion Verified 05/31/21 21:15 lisinopril AdvReac Cough Verified 05/31/21 21:15 scopolamine AdvReac Hallucinati Verified 05/31/21 21:15 ons SHRIMP FLAVOR Allergy Nausea and Uncoded 05/31/21 21:15 Vomiting Home Meds: Home Meds Latanoprost [Xalatan 0.005% Ophth Soln] 1 drop EYEBOTH BEDTIME 06/28/16 [History] Aspirin [Low Dose Aspirin EC] 81 mg PO BEDTIME 11/03/17 [History] Timolol Maleate 1 drop EYEBOTH DAILY 11/03/17 [History] Albuterol Sulfate [Proair Hfa] 1 - 2 puff PO Q4H PRN 12/08/17 [History] Tiotropium [Spiriva HandiHaler] 1 cap PO DAILY 12/08/17 [History] Multivit-Min36/Iron/Folic Acid [Geritol Complete Tablet] 1 each PO DAILY 08/09/18 [History] Cholecalciferol (Vitamin D3) [Vitamin D] 5,000 unit PO DAILY 05/31/21 [History] Cyanocobalamin (Vitamin B-12) [B-12] 1 tab PO DAILY 05/31/21 [History] Isosorbide Mononitrate [Isosorbide Mononitrate ER] 30 mg PO DAILY 05/31/21 [History] Levothyroxine [Synthroid] 50 mcg PO DAILY 05/31/21 [History] Naproxen Sodium [Aleve] 440 mg PO BID 05/31/21 [History] Propranolol [Inderal] 20 mg PO BEDTIME 05/31/21 [History] atorvaSTATin [Lipitor] 10 mg PO BEDTIME 05/31/21 [History] buPROPion HCL [Bupropion Xl] 150 mg PO DAILY 05/31/21 [History] Past Medical History HEENT History: Reports: Cataract, Glaucoma Cardiovascular History: Reports: CAD, Heart Failure, High Cholesterol, Hypertension, Stents Respiratory History: Reports: COPD, Sleep Apnea Gastrointestinal History: Reports: Cholelithiasis, Hemorrhoids Genitourinary History: Reports: Renal Calculus 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: Reports: Musculoskeletal History: Reports: Back Pain, Chronic, Osteoarthritis, Other (See Below) Other Musculoskeletal History: spinal stenosis, TMJ, L4-L5 disc bulge, SI joint dysfunction Neurological History: Reports: Other (See Below) Other Neuro History: tremor Psychiatric History: Reports: Anxiety, Depression, Panic Attack Endocrine/Metabolic History: Reports: Hypothyroidism, Obesity/BMI 30+ Hematologic History: Reports: Anticoagulation Therapy - Infectious Disease History Infectious Disease History: Reports: Chicken Pox, Measles, Mumps - Past Surgical History HEENT Surgical History: Reports: Cataract Surgery, Tonsillectomy Cardiovascular Surgical History: Reports: Coronary Artery Stent, Percutaneous Transluminal Angioplasty GI Surgical History: Reports: Appendectomy, Cholecystectomy, Colonoscopy Other Musculoskeletal Surgeries/Procedures:: R HAND, 2ND DIGIT FX Social & Family History - Family History Family Medical History: No Pertinent Family History Cardiac: Reports: Aneurysm GI: Reports: Cholelithiasis Endocrine/Metabolic: Reports: Diabetes, type II - Tobacco Use Tobacco Use Status *Q: Never Tobacco User Second Hand Smoke Exposure: No - Caffeine Use Caffeine Use: Reports: Other Other Caffeine Use: Caffeine 200mg pills bid - Recreational Drug Use Recreational Drug Use: No Review of Systems - Review of Systems Review Of Systems: See Below Constitutional: Reports: No Symptoms Eyes: Reports: No Symptoms Respiratory: Reports: No Symptoms Cardiovascular: Reports: No Symptoms GI/Abdominal: Reports: No Symptoms Genitourinary: Reports: No Symptoms Musculoskeletal: Reports: Back Pain (Bilateral low back pain), Joint Pain (Bilateral hip, knee, and ankle pain), Muscle Pain (Low back pain), Muscle Stiffness (Muscle stiffness in the lumbar spine) Skin: Reports: No Symptoms Neurological: Reports: Difficulty Walking Psychiatric: Reports: No Symptoms ED EXAM, GENERAL - Physical Exam Exam: See Below Exam Limited By: No Limitations General Appearance: Alert, Anxious, Moderate Distress, Obese Eye Exam: Bilateral Eye: EOMI, PERRL Head: Atraumatic, Normocephalic Neck: Normal Inspection, Supple, Non-Tender, Full Range of Motion Respiratory/Chest: No Respiratory Distress, Lungs Clear, Normal Breath Sounds Cardiovascular: Normal Peripheral Pulses, Regular Rate, Rhythm, No Murmur Peripheral Pulses: 2+: Radial (L), Radial (R), Posterior Tibial (L), Posterior Tibial (R) GI/Abdominal: Normal Bowel Sounds, Soft, Non-Tender Back Exam: Muscle Spasm (Bilateral paraspinal muscle spasm), Paraspinal Tenderness (Bilateral paraspinal tenderness to palpation), Vertebral Tenderness (L4-L5 with percussion), Other (Moderate bilateral SI joint tenderness with palpation.) Extremities: Limited Range of Motion (Chronic limited mobility of the hips.), Other (Severe bilateral trochanteric tenderness with palpation) Neurological: Alert, Oriented, Normal Cognition, No Motor/Sensory Deficits Psychiatric: Normal Affect, Anxious Skin Exam: Warm, Dry, Intact, Normal Color Course - Vital Signs Last Recorded V/S: Last Vital Signs Temp 36.3 C 05/31/21 21:29 Pulse 77 05/31/21 22:07 Resp 18 05/31/21 22:07 BP 174/94 H 05/31/21 22:07 Pulse Ox 94 L 05/31/21 22:07 - Orders/Labs/Meds Meds: Medications Discontinued Medications Generic Name Dose Route Start Last Admin Trade Name Freq PRN Reason Stop Dose Admin Hydromorphone HCl 0.5 mg 05/31/21 20:37 05/31/21 20:52 Hydromorphone 0.5 Mg/0.5 Ml Syringe IM 05/31/21 20:38 0.5 mg ONETIME ONE Administration - Radiology Interpretation Free Text/Narrative:: I reviewed the CT of the pelvis showing bilateral trochanteric bursitis right greater than left. There is no evidence for acute fractures. She does have bilateral osteoarthritis of the hips. I did review the CT of the lumbar spine showing significant osteoarthritis of the lumbar spine. She has significant degenerative disc disease with ruptured disks at L3-L4, L4-L5, and L5-S1. She has spondylolisthesis at L4-L5 and L5-S1. She has a significant central stenosis at L4-L5 with severe neuroforaminal stenosis on the right at L4-L5. - Re-Assessments/Exams Free Text/Narrative Re-Assessment/Exam: 05/31/21 22:[address] of the pelvis showing bilateral trochanteric bursitis right greater than left and of the lumbar spine showing severe spinal stenosis at L4-L5 with severe right-sided neuroforaminal stenosis and moderate left neuroforaminal stenosis which is consistent with her MRI. The patient is already been assessed by neurosurgery from [facility] and felt that she is not a surgical candidate due to her comorbidities. She is requiring a small amount of Dilaudid to keep her pain under control. There are limited options to treat this ongoing chronic issue so my recommendation is that we arrange for admission of the patient where she can be assessed by physical therapy and likely will need placement in either a skilled care facility or arrangements for in-home physical therapy on a fairly intensive basis to be able to maintain her mobility. These options were discussed at length with the patient and her family who have agreed to approach this in the similar fashion. I discussed the case with Dr. Liu who will arrange for admission of the patient. Departure - Departure Time of Disposition: 22:21 Disposition: Admitted As Inpatient 67 Clinical Impression: Spinal stenosis at L4-L5 level, Bilateral lumbar radiculopathy, Acute pain of left hip, Greater trochanteric bursitis of both hips, Obesity, morbid, BMI 40.0- 49.9, Essential hypertension, Atherosclerosis of aorta CAD (coronary artery disease) Qualifiers: Coronary Disease-Associated Artery/Lesion type: [place] artery [place] vs. transplanted heart: [place] heart Associated angina: without angina Qualified Code(s): I25.10 - Atherosclerotic heart disease of [place] coronary artery without angina pectoris - Discharge Information Referrals: PCP,None [Primary Care Provider] - Sepsis Event Note (ED) - Evaluation Sepsis Screening Result: No Definite Risk - Focused Exam Vital Signs: Vital Signs Temp Pulse Resp BP Pulse Ox 05/31/21 22:07 77 18 174/94 H 94 L 05/31/21 21:29 36.3 C 73 18 198/97 H 94 L 05/31/21 20:12 36.3 C 73 18 198/97 H 94 L - Problem List & Annotations (1) Obesity, morbid, BMI 40.0-49.9 SNOMED Code(s): 636639622, 065522871, 38778685656499 Code(s): E66.01 - MORBID (SEVERE) OBESITY DUE TO EXCESS CALORIES Status: [facility] Priority: Medium Current Visit: Yes (2) CAD (coronary artery disease) SNOMED Code(s): 43655832 Code(s): I25.10 - ATHSCL HEART DISEASE OF [place] CORONARY ARTERY W/O ANG PCTRS Status: Chronic Priority: Medium Current Visit: Yes Qualifiers: Coronary Disease-Associated Artery/Lesion type: [place] artery [place] vs. transplanted heart: [place] heart Associated angina: without angina Qualified Code(s): I25.10 - Atherosclerotic heart disease of [place] coronary artery without angina pectoris (3) Atherosclerosis of aorta SNOMED Code(s): 71308191 Code(s): I70.0 - ATHEROSCLEROSIS OF [place] Status: Chronic Priority: Medium Current Visit: Yes (4) Essential hypertension SNOMED Code(s): 83712494 Code(s): I10 - ESSENTIAL (PRIMARY) HYPERTENSION Status: Chronic Priority: Medium Current Visit: Yes (5) Acute pain of left hip SNOMED Code(s): 47033570 Code(s): M25.552 - PAIN IN LEFT HIP Status: Acute Priority: Medium Current Visit: Yes (6) Bilateral lumbar radiculopathy SNOMED Code(s): 663044307 Code(s): M54.16 - RADICULOPATHY, LUMBAR REGION Status: Acute Priority: Medium Current Visit: Yes (7) Greater trochanteric bursitis of both hips SNOMED Code(s): 4354189 Code(s): M70.61 - TROCHANTERIC BURSITIS, RIGHT HIP; M70.62 - TROCHANTERIC BURSITIS, LEFT HIP Status: Acute Priority: Medium Current Visit: Yes (8) Spinal stenosis at L4-L5 level SNOMED Code(s): 55374285 Code(s): M48.061 - SPINAL STENOSIS, LUMBAR REGION WITHOUT NEUROGENIC MICH Status: Chronic Priority: Medium Current Visit: Yes - Problem List Review Problem List Initiated/Reviewed/Updated: Yes
[2021-05-31] MEDS ORDERED: Sodium Chloride 0.9% 10 ML Syringe FLUSH PRN (22:36)
[2021-05-31] MEDS ORDERED: Albuterol 8 GM Inhaler INH PRN (22:48)
[2021-05-31] MEDS: HYDROmorphone 0.5 MG/0.5 ML Syringe IVPUSH PRN (23:28)
--- NOTE | 2021-06-01 00:59 | HP ---
CHIEF COMPLAINT: Lumbar pain. HISTORY OF PRESENT ILLNESS: A 75-year-old who has had a history of lumbar pain in the past, but over the last 4 days she has had increasing pain. She has met with Neurosurgery in the past. They did not feel that she was a surgical candidate. She has disk herniation with stenosis of L3-L4 and L4-L5, which sounds like L4-L5 is worse. She has been seeing the chiropractor. Neurosurgery has her on Aleve 2 tablets twice a day and Tylenol. Just last 4 days she started having increased pain without any specific incident or injury. She does report bilateral radicular pain down her legs, but no numbness. Otherwise denies any other complaints, was brought in by ambulance because of her increased severe pain and was given IV Dilaudid in the emergency room. I was asked to admit the patient for further evaluation and treatment, pain control, and discharge disposition, PT evaluation. PAST MEDICAL HISTORY: 1. Borderline diabetes. 2. History of chronic back pain, not felt to be a surgical candidate. 3. Glaucoma. 4. Essential tremor. 5. Bilateral leg pain. 6. COPD. 7. Obstructive sleep apnea. 8. Heart failure with preserved ejection fraction. 9. Essential hypertension. 10.Coronary artery disease. 11.Obesity. 12.Renal cyst. 13.Polyarthritis. 14.Primary osteoarthritis of both hips, SI joint dysfunction. 15.Hyperlipidemia. 16.Hypothyroidism. 17.Tremor. MEDICATIONS: 1. Albuterol inhaler 2 puffs q.4 hours p.r.n. 2. Aspirin 81 mg daily. 3. Atorvastatin 10 mg at bedtime. 4. Bupropion XL 150 mg daily. 5. Vitamin D3 5000 units daily. 6. B12 1000 mcg daily. 7. Isosorbide mononitrate 30 mg daily. 8. eye drops 1 drop both eyes at bedtime. 9. Levothyroxine 50 mcg daily. 10.Multivitamin daily. 11.Naproxen 440 mg b.i.d. 12.Propranolol 20 mg at bedtime. 13.Timolol 0.5% drops 1 drop both eyes daily. 14.Spiriva inhaler daily. ALLERGIES: ADHESIVE TAPE, BROCCOLI, BUSPIRONE, DOXYCYCLINE, LATEX, BENTYL, EFFEXOR, LISINOPRIL, PAXIL, SCOPOLAMINE, CLARITIN, TIZANIDINE, SHRIMP FLAVOR. SOCIAL HISTORY: Previous smoker, quit in 2015, about half a pack for 45 years. FAMILY HISTORY: Noncontributory. REVIEW OF SYSTEMS: Denies headaches, vision changes, upper respiratory symptoms. No chest pain, shortness of breath, cough, nausea, vomiting, diarrhea, constipation, bloody black stools. No urinary problems reported. No swelling in her legs. No skin problems reported. Neurologic complaints with the severe lower back pain which is worsened and bilateral leg pain, but no numbness. OBJECTIVE: VITAL SIGNS weight 107 kg; temp 36.3; pulse 73; blood pressure 198/97, on recheck was 174/94; respirations 18; O2 saturation 94% on room air. HEENT: Pharynx is clear. NECK: Supple. No adenopathy, thyromegaly, JVD, carotid bruits. LUNGS: Clear. HEART: Regular without murmurs. ABDOMEN: Obese, soft, nontender. No mass or organomegaly palpated. MUSCULOSKELETAL: She does have discomfort with palpation of the lumbar spine, but it is better since she had the Dilaudid shot. She does have the radicular symptoms down both legs. Pedal pulses are palpable and equal bilaterally. No significant swelling. SKIN: Negative. NEURO: Cranial nerves II through XII grossly intact. Alert and oriented. Mental status is normal. IMAGING: CT scan of her pelvis showed bilateral greater trochanteric bursitis. CT scan of her lumbar spine showed right lateral disk herniation at L4-L5 with severe right foraminal stenosis and multilevel degenerative disk disease and facet arthritis. LABORATORY DATA: There were no lab tests. ASSESSMENT: 1. Lumbar disk herniation L4-L5 with severe right foraminal stenosis with multilevel degenerative disk disease and facet arthritis causing lower back pain. The ER doctor did give her Dilaudid, which did help with her pain, but she is having a hard time ambulating because of the discomfort getting up, and it was not felt that she could safely go home. I was asked to admit the patient for further evaluation, treatment, and for pain control along with physical therapy evaluation, possible discharge disposition planning. We will admit her. IV Dilaudid. Otherwise, we will continue with her current medications. Admit her as inpatient. Anticipate 2 midnight stays. 2. Borderline diabetes. 3. Coronary artery disease with congestive heart failure. 4. Essential hypertension. 5. Hypothyroidism. 6. Glaucoma. 7. History of chronic obstructive pulmonary disease with obstructive sleep apnea. Darell Liu MD /[id number]
[2021-06-01] MEDS: HYDROmorphone 0.5 MG/0.5 ML Syringe IVPUSH PRN ×4 (03:36→22:35)
[2021-06-01] MEDS: Levothyroxine 50 MCG Tab PO SCH (07:52)
[2021-06-01] MEDS: Tiotropium Bromide 4 GM Inhalation Spray (2.5mcg/1 dose; 10 doses) INH SCH (08:52)
[2021-06-01] MEDS ORDERED: Tiotropium Bromide 4 GM Inhalation Spray (2.5mcg/1 dose; 10 doses) INH SCH (09:00)
[2021-06-01] MEDS ORDERED: Levothyroxine 50 MCG Tab PO SCH (09:00)
[2021-06-01] MEDS: Naproxen 250 MG Tab PO SCH ×2 (09:20→20:18)
[2021-06-01] MEDS: Cyanocobalamin (Vitamin B12) 1,000 MCG Tab PO SCH (09:20)
[2021-06-01] MEDS: buPROPion 150 MG Tab.ER PO SCH (09:20)
[2021-06-01] MEDS: Multivitamins with Iron/Calcium/Folic Acid/Minerals Tab PO SCH (09:20)
[2021-06-01] MEDS: Isosorbide Mononitrate 30 MG Tab.ER PO SCH (09:20)
[2021-06-01] MEDS: Cholecalciferol (Vitamin D3) 25 MCG Tab PO SCH (09:20)
[2021-06-01] MEDS: Timolol Maleate 0.5% Ophth Soln 5 ML Bottle EYEBOTH SCH (09:21)
--- NOTE | 2021-06-01 12:49 | PCM.PN ---
- General Info Date of Service: 06/01/21 Subjective Update: Ms. Galvan is a 75-year-old woman who was admitted through the emergency department last night with severe lower back pain. She has had a chronic history of low back pain, this pain is more severe especially over the past few days. At home she was unable to transfer or ambulate because of the pain. CT scan was obtained which did show disc herniation causing significant narrowing of the right L4-5 foramen. Most of her pain is in the left lower back and r adiates into the left leg. She denies weakness and has had no bowel or bladder incontinence. Functional Status: Reports: Tolerating Diet, Urinating - Review of Systems General: Reports: No Symptoms Pulmonary: Reports: No Symptoms Cardiovascular: Reports: No Symptoms Gastrointestinal: Reports: No Symptoms Musculoskeletal: Reports: Back Pain, Leg Pain - Patient Data Vitals - Most Recent: Last Vital Signs Temp 95.7 F L 06/01/21 07:48 Pulse 53 L 06/01/21 07:48 Resp 16 06/01/21 07:48 BP 140/59 L 06/01/21 09:20 Pulse Ox 94 L 06/01/21 07:48 Weight - Most Recent: 273 lb 0.01 oz I&O - Last 24 Hours: Intake & Output 05/31/21 06/01/21 06/01/21 22:59 06:59 14:59 Intake Total 600 Output Total 450 Balance -450 600 Med Orders - Current: Current Medications Albuterol (Albuterol 8 Gm Inhaler) 0 gm INH Q4H PRN PRN Reason: Shortness of Breath Aspirin (Aspirin 81 Mg Tab.Ec) 81 mg PO BEDTIME [facility] Atorvastatin Calcium (Atorvastatin 10 Mg Tab) 10 mg PO BEDTIME AJAY Bupropion HCl (Bupropion 150 Mg Tab.Er) 150 mg PO DAILY [facility] Last Admin: 06/01/21 09:20 Dose: 150 mg Documented by: Cholecalciferol (Cholecalciferol (Vitamin D3) 25 Mcg Tab) 125 mcg PO DAILY AJAY Last Admin: 06/01/21 09:20 Dose: 125 mcg Documented by: Cyanocobalamin (Cyanocobalamin (Vitamin B12) 1,000 Mcg Tab) 1,000 mcg PO DAILY AJAY Last Admin: 06/01/21 09:20 Dose: 1,000 mcg Documented by: Hydromorphone HCl (Hydromorphone 0.5 Mg/0.5 Ml Syringe) 0.5 mg IVPUSH Q1H PRN PRN Reason: Pain Last Admin: 06/01/21 06:09 Dose: 0.5 mg Documented by: Isosorbide Mononitrate (Isosorbide Mononitrate 30 Mg Tab.Er) 30 mg PO DAILY [facility] Last Admin: 06/01/21 09:20 Dose: 30 mg Documented by: Latanoprost (Latanoprost 0.005% Ophth Soln 2.5 Ml Bottle) 0 ml EYEBOTH BEDTIME [facility] Levothyroxine Sodium (Levothyroxine 50 Mcg Tab) 50 mcg PO ACBREAKFAST [facility] Last Admin: 06/01/21 07:52 Dose: 50 mcg Documented by: Multivitamins/Minerals (Multivitamins With Iron/Calcium/Folic Acid/Minerals Tab) 1 tab PO DAILY [facility] Last Admin: 06/01/21 09:20 Dose: 1 tab Documented by: Naproxen (Naproxen 250 Mg Tab) 500 mg PO BID [facility] Last Admin: 06/01/21 09:20 Dose: 500 mg Documented by: Propranolol HCl (Propranolol 40 Mg Tab) 20 mg PO BEDTIME [facility] Sodium Chloride (Sodium Chloride 0.9% 10 Ml Syringe) 10 ml FLUSH ASDIRECTED PRN PRN Reason: Keep Vein Open Timolol Maleate (Timolol Maleate 0.5% Ophth Soln 5 Ml Bottle) 0 ml EYEBOTH DAILY [facility] Last Admin: 06/01/21 09:21 Dose: 1 drop Documented by: Tiotropium [place] (Tiotropium [place] 4 Gm Inhalation [place] (2.5mcg/1 Dose; 10 Doses)) 0 gm INH DAILY@0700 [facility] Last Admin: 06/01/21 08:52 Dose: 2 puff Documented by: Discontinued Medications Hydromorphone HCl (Hydromorphone 0.5 Mg/0.5 Ml Syringe) 0.5 mg IM ONETIME ONE Stop: 05/31/21 20:38 Last Admin: 05/31/21 20:52 Dose: 0.5 mg Documented by: Levothyroxine Sodium (Levothyroxine 50 Mcg Tab) 50 mcg PO DAILY [facility] - Exam General: Alert, Oriented, Cooperative, Moderate Distress Lungs: Clear to Auscultation, Normal Respiratory Effort Cardiovascular: Regular Rate, Regular Rhythm, No Murmurs GI/Abdominal Exam: Soft, Non-Tender, No Organomegaly, No Distention Back Exam: Vertebral Tenderness Extremities: No Pedal Edema Neurological: Normal Speech, Strength Equal Bilateral, Sensation Intact Sepsis Event Note - Evaluation Sepsis Screening Result: No Definite Risk - Focused Exam Vital Signs: Vital Signs Temp Pulse Resp BP BP Pulse Ox 06/01/21 09:20 140/59 L 06/01/21 07:48 95.7 F L 53 L 16 140/59 L 94 L 06/01/21 03:00 96.3 F L 88 18 160/83 H 93 L - Problem List Review Problem List Initiated/Reviewed/Updated: Yes - Plan Plan:: ASSESSMENT AND PLAN ACUTE ON CHRONIC LOW BACK PAIN-radicular features into the left leg, no weakness or sensory changes. CT scan shows degenerative changes as well as disc herniation at L4-5 causing impingement on the right foramen. -Continue current pain medications -Physical therapy consult -Consult anesthesia for epidural injection if possible HISTORY OF COPD-well compensated at the present time MAINTENANCE ISSUES -DVT prophylaxis; SCUDs -GI prophylaxis; not indicated -Hdez catheter; not indicated -Nutrition; regular diet -Nicotine dependence; not required CODE STATUS-FULL CODE ADMISSION STATUS-patient will be admitted to inpatient status, expect at least a 2 night hospital stay for evaluation and management of problems as outlined above. At the time of this admission I do not reasonably expected evaluation and management of this problem will require more than a 96 hour hospital stay. DISPOSITION-anticipate discharge to home after the hospital stay. PRIMARY CARE PROVIDER-Dr. Hatch
[2021-06-01] MEDS ORDERED: methylPREDNISolone Acetate 80 MG/ML SDV ONE (13:29)
[2021-06-01] MEDS ORDERED: Bupivacaine 0.25% 10 ML SDV ONE (13:29)
--- NOTE | 2021-06-01 15:22 | ANES ---
DATE OF SERVICE: 06/01/2021 INDICATION: I was called by Dr. Marley this early afternoon for a lady who is an inpatient hospital with chronic back pain. She is having significant back pain and was admitted over the night last night. They did a CT on her according Dr. Marley, the CT showed that she got pretty significant right herniated disk at L4-5, and describes her pain down mostly to the left, but a little bit also on the right side on bilateral ankles, but again most of her pain is on the left side. Matilda has had round of 3 ESIs done prior to [facility] about a year and a half ago, but is continuing to still have some back pain, more significant recently. With her first 3 that she had a year and half ago, the first one worked pretty good, the next 2 did not work that great for the patient, so has seen a neurosurgeon, and according to the patient she is not really a surgery candidate, so Dr. Marley wanted to have me take a look at the patient today and see if I could do an ANGEL today. I was at the bedside. Discussed the risks and benefits related to the patient, including spinal headache, infection risks. Also stated that this may not help, considering that she has had her last 2 a year and a half ago and did not really give her much relief at all, but since the pain is different, we decided to go ahead with the epidural steroid injection. The patient verbalizes the understanding of the risks and benefits and wishes to proceed today. TECHNIQUE: The patient is not on any blood thinners other than aspirin, but patient would stay inpatient overnight. Matilda was sat at the edge of the bed. Betadine prep x3 to the lumbar region was done. Sterile drape was placed. 1% lidocaine skin wheal and deep was done. A 17-gauge Tuohy needle was inserted at approximately the L4-L5 position. Loss of resistance was difficult to achieve. Very bony feel throughout, difficult to find a space, did try several different angles at L4-5. Finally, I was able to get a nice angle and to get through to flavum and loss resistance with a little caudal angle at L4-5. Loss of resistance was noticed, flushed very easy at that time. No CSF, no paresthesia, no heme was noted after loss of resistance. I then proceeded to give the patient 7 mL of sterile normal saline with 2 mL of 0.25% Sensorcaine and 1 mL of 80 mg Depo-Medrol. The Tuohy needle was then flushed and withdrawn. Sterile drape was taken down. Betadine was cleaned off the back, and a Band-Aid was applied to the puncture site for hemostasis. The patient tolerated the procedure without difficulty. Did not really have any radiation down the leg, but as easy as that 10 mL of volume that I pushed, I can imagine that I am in anything but her epidural space, which makes me wonder if this is going to be very effective for her at this time. I did tell the patient that we would like to see her in about 2-1/2 weeks through the Pain [facility] to have another second round before we make any judgments and discuss other options. Emily was at the bedside the entire time. The patient tolerated the procedure without difficulty. Please refer to the nurse's notes for vital signs. Like I said, patient is an inpatient and I believe is staying overnight for further pain control with her back. Matthew Henry CRNA /[id number]
[2021-06-01] MEDS: Aspirin 81 MG Tab.EC PO SCH (20:17)
[2021-06-01] MEDS: Propranolol 40 MG Tab PO SCH (20:17)
[2021-06-01] MEDS: Latanoprost 0.005% Ophth Soln 2.5 ML Bottle EYEBOTH SCH (20:18)
[2021-06-01] MEDS: atorvaSTATin 10 MG Tab PO SCH (20:18)
[2021-06-02] MEDS: Tiotropium Bromide 4 GM Inhalation Spray (2.5mcg/1 dose; 10 doses) INH SCH (07:14)
[2021-06-02] MEDS: Cholecalciferol (Vitamin D3) 25 MCG Tab PO SCH (08:37)
[2021-06-02] MEDS: buPROPion 150 MG Tab.ER PO SCH (08:37)
[2021-06-02] MEDS: Naproxen 250 MG Tab PO SCH ×2 (08:37→20:28)
[2021-06-02] MEDS: Cyanocobalamin (Vitamin B12) 1,000 MCG Tab PO SCH (08:38)
[2021-06-02] MEDS: Multivitamins with Iron/Calcium/Folic Acid/Minerals Tab PO SCH (08:38)
[2021-06-02] MEDS: Levothyroxine 50 MCG Tab PO SCH (08:38)
[2021-06-02] MEDS: Isosorbide Mononitrate 30 MG Tab.ER PO SCH (08:39)
[2021-06-02] MEDS: Timolol Maleate 0.5% Ophth Soln 5 ML Bottle EYEBOTH SCH (08:39)
[2021-06-02] MEDS: HYDROmorphone 0.5 MG/0.5 ML Syringe IVPUSH PRN ×2 (10:06→15:44)
--- NOTE | 2021-06-02 16:05 | PCM.PN ---
- General Info Date of Service: 06/02/21 Subjective Update: Ms. Galvan is feeling significantly improved today and able to move more easily. She did receive epidural injection yesterday and seems to be getting good benefit. She continues to have some pain with activity but much improved for which she had noted earlier. Functional Status: Reports: Tolerating Diet, Ambulating, Urinating - Review of Systems General: Reports: No Symptoms Pulmonary: Reports: No Symptoms Cardiovascular: Reports: No Symptoms Gastrointestinal: Reports: No Symptoms - Patient Data Vitals - Most Recent: Last Vital Signs Temp 98.1 F 06/02/21 09:00 Pulse 80 06/02/21 09:00 Resp 16 06/02/21 09:00 BP 160/72 H 06/02/21 09:00 Pulse Ox 92 L 06/02/21 09:00 Weight - Most Recent: 273 lb 0.01 oz I&O - Last 24 Hours: Intake & Output 06/02/21 06/02/21 06/02/21 06:59 14:59 22:59 Intake Total 500 400 Balance 500 400 Med Orders - Current: Current Medications Albuterol (Albuterol 8 Gm Inhaler) 0 gm INH Q4H PRN PRN Reason: Shortness of Breath Aspirin (Aspirin 81 Mg Tab.Ec) 81 mg PO BEDTIME [facility] Last Admin: 06/01/21 20:17 Dose: Not Given Documented by: Atorvastatin Calcium (Atorvastatin 10 Mg Tab) 10 mg PO BEDTIME [facility] Last Admin: 06/01/21 20:18 Dose: Not Given Documented by: Bupropion HCl (Bupropion 150 Mg Tab.Er) 150 mg PO DAILY [facility] Last Admin: 06/02/21 08:37 Dose: 150 mg Documented by: Cholecalciferol (Cholecalciferol (Vitamin D3) 25 Mcg Tab) 125 mcg PO DAILY [facility] Last Admin: 06/02/21 08:37 Dose: 125 mcg Documented by: Cyanocobalamin (Cyanocobalamin (Vitamin B12) 1,000 Mcg Tab) 1,000 mcg PO DAILY [facility] Last Admin: 06/02/21 08:38 Dose: 1,000 mcg Documented by: Isosorbide Mononitrate (Isosorbide Mononitrate 30 Mg Tab.Er) 30 mg PO DAILY [facility] Last Admin: 06/02/21 08:39 Dose: 30 mg Documented by: Latanoprost (Latanoprost 0.005% Ophth Soln 2.5 Ml Bottle) 0 ml EYEBOTH BEDTIME [facility] Last Admin: 06/01/21 20:18 Dose: Not Given Documented by: Levothyroxine Sodium (Levothyroxine 50 Mcg Tab) 50 mcg PO ACBREAKFAST [facility] Last Admin: 06/02/21 08:38 Dose: 50 mcg Documented by: Multivitamins/Minerals (Multivitamins With Iron/Calcium/Folic Acid/Minerals Tab) 1 tab PO DAILY [facility] Last Admin: 06/02/21 08:38 Dose: 1 tab Documented by: Naproxen (Naproxen 250 Mg Tab) 500 mg PO BID [facility] Last Admin: 06/02/21 08:37 Dose: 500 mg Documented by: Oxycodone HCl (Oxycodone 5 Mg Tab) 5 mg PO Q4H PRN PRN Reason: Pain Propranolol HCl (Propranolol 40 Mg Tab) 20 mg PO BEDTIME [facility] Last Admin: 06/01/21 20:17 Dose: Not Given Documented by: Sodium Chloride (Sodium Chloride 0.9% 10 Ml Syringe) 10 ml FLUSH ASDIRECTED PRN PRN Reason: Keep Vein Open Timolol Maleate (Timolol Maleate 0.5% Ophth Soln 5 Ml Bottle) 0 ml EYEBOTH DAILY [facility] Last Admin: 06/02/21 08:39 Dose: 1 drop Documented by: Tiotropium [place] (Tiotropium [place] 4 Gm Inhalation [place] (2.5mcg/1 Dose; 10 Doses)) 0 gm INH DAILY@0700 [facility] Last Admin: 06/02/21 07:14 Dose: 2 puff Documented by: Discontinued Medications Bupivacaine HCl (Bupivacaine 0.25% 10 Ml Sdv) Confirm Administered Dose 10 ml .ROUTE .STK-MED ONE Stop: 06/01/21 13:30 Hydromorphone HCl (Hydromorphone 0.5 Mg/0.5 Ml Syringe) 0.5 mg IM ONETIME ONE Stop: 05/31/21 20:38 Last Admin: 05/31/21 20:52 Dose: 0.5 mg Documented by: Hydromorphone HCl (Hydromorphone 0.5 Mg/0.5 Ml Syringe) 0.5 mg IVPUSH Q1H PRN PRN Reason: Pain Last Admin: 06/02/21 15:44 Dose: 0.5 mg Documented by: Levothyroxine Sodium (Levothyroxine 50 Mcg Tab) 50 mcg PO DAILY [facility] Methylprednisolone Acetate (Methylprednisolone Acetate 80 Mg/Ml Sdv) Confirm Administered Dose 80 mg .ROUTE .STK-MED ONE Stop: 06/01/21 13:30 - Exam General: Alert, Oriented, Cooperative, Mild Distress Lungs: Clear to Auscultation, Normal Respiratory Effort Cardiovascular: Regular Rate, Regular Rhythm, No Murmurs GI/Abdominal Exam: Soft, Non-Tender, No Organomegaly, No Distention Back Exam: Normal Inspection. No: Full Range of Motion Extremities: Non-Tender, No Pedal Edema Sepsis Event Note - Evaluation Sepsis Screening Result: No Definite Risk - Focused Exam Vital Signs: Vital Signs Temp Pulse Resp BP BP Pulse Ox 06/02/21 09:00 98.1 F 80 16 160/72 H 92 L 06/02/21 08:39 130/78 - Problem List Review Problem List Initiated/Reviewed/Updated: Yes - My Orders Last 24 Hours: My Active Orders 06/02/21 16:00 oxyCODONE 5 mg PO Q4H PRN - Plan Plan:: ASSESSMENT AND PLAN ACUTE ON CHRONIC LOW BACK PAIN-radicular features into the left leg, no weakness or sensory changes. CT scan shows degenerative changes as well as disc herniation at L4-5 causing impingement on the right foramen. She is feeling significantly improved following ANGEL yesterday by anesthesia -Continue current pain medications -Physical therapy consult HISTORY OF COPD-well compensated at the present time MAINTENANCE ISSUES -DVT prophylaxis; SCUDs -GI prophylaxis; not indicated -Hdez catheter; not indicated -Nutrition; regular diet -Nicotine dependence; not required CODE STATUS-FULL CODE ADMISSION STATUS-patient will be admitted to inpatient status, expect at least a 2 night hospital stay for evaluation and management of problems as outlined above. At the time of this admission I do not reasonably expected evaluation and management of this problem will require more than a 96 hour hospital stay. DISPOSITION-anticipate discharge to shelter for restorative physical th erapy and Occupational Therapy PRIMARY CARE PROVIDER-Dr. Hatch
[2021-06-02] MEDS: oxyCODONE 5 MG Tab PO PRN ×2 (17:05→21:09)
[2021-06-02] MEDS: Aspirin 81 MG Tab.EC PO SCH (20:27)
[2021-06-02] MEDS: atorvaSTATin 10 MG Tab PO SCH (20:29)
[2021-06-02] MEDS: Propranolol 40 MG Tab PO SCH (20:29)
[2021-06-02] MEDS: Latanoprost 0.005% Ophth Soln 2.5 ML Bottle EYEBOTH SCH (20:29)
[2021-06-03] MEDS: oxyCODONE 5 MG Tab PO PRN ×4 (01:03→14:16)
[2021-06-03] MEDS: Tiotropium Bromide 4 GM Inhalation Spray (2.5mcg/1 dose; 10 doses) INH SCH (07:21)
[2021-06-03] MEDS: Levothyroxine 50 MCG Tab PO SCH (07:26)
[2021-06-03] MEDS: Multivitamins with Iron/Calcium/Folic Acid/Minerals Tab PO SCH (08:42)
[2021-06-03] MEDS: Cholecalciferol (Vitamin D3) 25 MCG Tab PO SCH (08:42)
[2021-06-03] MEDS: buPROPion 150 MG Tab.ER PO SCH (08:43)
[2021-06-03] MEDS: Cyanocobalamin (Vitamin B12) 1,000 MCG Tab PO SCH (08:43)
[2021-06-03] MEDS: Naproxen 250 MG Tab PO SCH (08:43)
[2021-06-03] MEDS: Isosorbide Mononitrate 30 MG Tab.ER PO SCH (08:43)
[2021-06-03] MEDS: Timolol Maleate 0.5% Ophth Soln 5 ML Bottle EYEBOTH SCH (08:44)
--- NOTE | 2021-06-03 15:08 | PCM.DCSUM1 ---
Discharge Summary - Hospital Course Brief History: Ms. Galvan is a 75-year-old woman who was admitted through the emergency department with severe pain in her right lower back radiating into the right leg. - Discharge Data Discharge Date: 06/03/21 Discharge Disposition: Home, Self-Care 01 Condition: Fair - Referral to Home Health Primary Care Physician: PCP None - Discharge Diagnosis/Problem(s) (1) Spinal stenosis at L4-L5 level SNOMED Code(s): 83041049 ICD Code: M48.061 - SPINAL STENOSIS, LUMBAR REGION WITHOUT NEUROGENIC MICH Status: Chronic Priority: Medium - Patient Summary/Data Consults: Consultations 05/31/21 22:36 PT Evaluation and Treatment [CONS] Routine Please Evaluate and Treat. PT Reason for Consult: back pain This query below is only for informational purposes and is not editable. Hospital Course: Ms. Galvan is a 75-year-old woman who was admitted through the emergency department last night with severe lower back pain. She has had a chronic history of low back pain, this pain is more severe especially over the past few days. At home she was unable to transfer or ambulate because of the pain. CT scan was obtained which did show disc herniation causing significant narrowing of the right L4-5 foramen. Most of her pain is in the left lower back and radiates into the left leg. She denies weakness and has had no bowel or bladder incontinence. She was admitted to the hospital and given pain medication as needed. On the day after admission she was seen by anesthesia and did receive an epidural steroid injection. The injection did help her pain significantly but she felt she was too weak to safely return home. She will be discharged to the senior living for restorative physical therapy and Occupational Therapy. Activity will be as tolerated and she will resume her usual diet. - Patient Instructions Diet: Usual Diet as Tolerated Activity: As Tolerated Other/Special Instructions: Daily physical therapy and Occupational Therapy while at the senior living - Discharge Plan *PRESCRIPTION DRUG MONITORING PROGRAM REVIEWED*: Not Applicable *COPY OF PRESCRIPTION DRUG MONITORING REPORT IN PATIENT [place]: Not Applicable Prescriptions/Med Rec: oxyCODONE 5 mg PO Q4H PRN #20 tablet PRN Reason: Pain Home Medications: Home Meds Latanoprost [Xalatan 0.005% Ophth Soln] 1 drop EYEBOTH BEDTIME 06/28/16 [History] Aspirin [Low Dose Aspirin EC] 81 mg PO BEDTIME 11/03/17 [History] Timolol Maleate 1 drop EYEBOTH DAILY 11/03/17 [History] Albuterol Sulfate [Proair Hfa] 1 - 2 puff PO Q4H PRN 12/08/17 [History] Tiotropium [Spiriva HandiHaler] 1 cap PO DAILY 12/08/17 [History] Multivit-Min36/Iron/Folic Acid [Geritol Complete Tablet] 1 each PO DAILY 08/09/18 [History] Cholecalciferol (Vitamin D3) [Vitamin D] 5,000 unit PO DAILY 05/31/21 [History] Cyanocobalamin (Vitamin B-12) [B-12] 1 tab PO DAILY 05/31/21 [History] Isosorbide Mononitrate [Isosorbide Mononitrate ER] 30 mg PO DAILY 05/31/21 [History] Levothyroxine [Synthroid] 50 mcg PO DAILY 05/31/21 [History] Naproxen Sodium [Aleve] 440 mg PO BID 05/31/21 [History] Propranolol [Inderal] 20 mg PO BEDTIME 05/31/21 [History] atorvaSTATin [Lipitor] 10 mg PO BEDTIME 05/31/21 [History] buPROPion HCL [Bupropion Xl] 150 mg PO DAILY 05/31/21 [History] oxyCODONE 5 mg PO Q4H PRN #20 tablet 06/03/21 [Rx] Patient Handouts: Spinal Anesthesia and Epidural Anesthesia, Care After, Spinal Stenosis, Ctud-ox-Urna - Discharge Summary/Plan Comment DC Time >30 min.: No Total # of Minutes for Discharge Time: 20 - Patient Data Vitals - Most Recent: Last Vital Signs Temp 97.2 F 06/03/21 11:54 Pulse 80 06/03/21 11:54 Resp 16 06/03/21 11:54 BP 145/83 H 06/03/21 11:54 Pulse Ox 81 L 06/03/21 11:54 Weight - Most Recent: 273 lb 0.01 oz I&O - Last 24 hours: Intake & Output 06/03/21 06/03/21 06/03/21 06:59 14:59 22:59 Intake Total 500 840 Balance 500 840 Med Orders - Current: Current Medications Albuterol (Albuterol 8 Gm Inhaler) 0 gm INH Q4H PRN PRN Reason: Shortness of Breath Aspirin (Aspirin 81 Mg Tab.Ec) 81 mg PO BEDTIME [facility] Last Admin: 06/02/21 20:27 Dose: 81 mg Documented by: Atorvastatin Calcium (Atorvastatin 10 Mg Tab) 10 mg PO BEDTIME [facility] Last Admin: 06/02/21 20:29 Dose: 10 mg Documented by: Bupropion HCl (Bupropion 150 Mg Tab.Er) 150 mg PO DAILY [facility] Last Admin: 06/03/21 08:43 Dose: 150 mg Documented by: Cholecalciferol (Cholecalciferol (Vitamin D3) 25 Mcg Tab) 125 mcg PO DAILY [facility] Last Admin: 06/03/21 08:42 Dose: 125 mcg Documented by: Cyanocobalamin (Cyanocobalamin (Vitamin B12) 1,000 Mcg Tab) 1,000 mcg PO DAILY [facility] Last Admin: 06/03/21 08:43 Dose: 1,000 mcg Documented by: Isosorbide Mononitrate (Isosorbide Mononitrate 30 Mg Tab.Er) 30 mg PO DAILY [facility] Last Admin: 06/03/21 08:43 Dose: 30 mg Documented by: Latanoprost (Latanoprost 0.005% Ophth Soln 2.5 Ml Bottle) 0 ml EYEBOTH BEDTIME [facility] Last Admin: 06/02/21 20:29 Dose: 1 drop Documented by: Levothyroxine Sodium (Levothyroxine 50 Mcg Tab) 50 mcg PO ACBREAKFAST [facility] Last Admin: 06/03/21 07:26 Dose: 50 mcg Documented by: Multivitamins/Minerals (Multivitamins With Iron/Calcium/Folic Acid/Minerals Tab) 1 tab PO DAILY [facility] Last Admin: 06/03/21 08:42 Dose: 1 tab Documented by: Naproxen (Naproxen 250 Mg Tab) 500 mg PO BID [facility] Last Admin: 06/03/21 08:43 Dose: 500 mg Documented by: Oxycodone HCl (Oxycodone 5 Mg Tab) 5 mg PO Q4H PRN PRN Reason: Pain Last Admin: 06/03/21 14:16 Dose: 5 mg Documented by: Propranolol HCl (Propranolol 40 Mg Tab) 20 mg PO BEDTIME [facility] Last Admin: 06/02/21 20:29 Dose: 20 mg Documented by: Sodium Chloride (Sodium Chloride 0.9% 10 Ml Syringe) 10 ml FLUSH ASDIRECTED PRN PRN Reason: Keep Vein Open Timolol Maleate (Timolol Maleate 0.5% Ophth Soln 5 Ml Bottle) 0 ml EYEBOTH [place] [facility] Last Admin: 06/03/21 08:44 Dose: 1 drop Documented by: Tiotropium [place] (Tiotropium [place] 4 Gm Inhalation [place] (2.5mcg/1 Dose; 10 Doses)) 0 gm INH DAILY@0700 [facility] Last Admin: 06/03/21 07:21 Dose: 2 puff Documented by: Discontinued Medications Bupivacaine HCl (Bupivacaine 0.25% 10 Ml Sdv) Confirm Administered Dose 10 ml .ROUTE .STK-MED ONE Stop: 06/01/21 13:30 Hydromorphone HCl (Hydromorphone 0.5 Mg/0.5 Ml Syringe) 0.5 mg IM ONETIME ONE Stop: 05/31/21 20:38 Last Admin: 05/31/21 20:52 Dose: 0.5 mg Documented by: Hydromorphone HCl (Hydromorphone 0.5 Mg/0.5 Ml Syringe) 0.5 mg IVPUSH Q1H PRN PRN Reason: Pain Last Admin: 06/02/21 15:44 Dose: 0.5 mg Documented by: Levothyroxine Sodium (Levothyroxine 50 Mcg Tab) 50 mcg PO DAILY [facility] Methylprednisolone Acetate (Methylprednisolone Acetate 80 Mg/Ml Sdv) Confirm Administered Dose 80 mg .ROUTE .STK-MED ONE Stop: 06/01/21 13:30 - Exam Quality Assessment: Reports: DVT Prophylaxis General: Reports: Alert, Oriented, Cooperative, Moderate Distress Lungs: Reports: Clear to Auscultation, Normal Respiratory Effort Cardiovascular: Reports: Regular Rate, Regular Rhythm, No Murmurs GI/Abdominal Exam: Soft, Non-Tender, No Organomegaly, No Distention Back Exam: Reports: Paraspinal Tenderness, Vertebral Tenderness
== END 2021-06-03 14:45 | disposition home or self-care (01) | DRG 552 ==
LOC: JP.ED 20:10 → JP.MS 22:36
PROVIDERS: ADMIT Family Medicine; ATTEND Hospitalist
PROC: 3E0R3NZ Introduction of Analgesics, Hypnotics, Sedatives into Spinal Canal, Percutaneous Approach (ICD-10-PCS; principal; 2021-06-01)
DX: M51.16 Intervertebral disc disorders with radiculopathy, lumbar region (principal); Z68.41 Body mass index [BMI] 40.0-44.9, adult; I50.32 Chronic diastolic (congestive) heart failure; M54.16 Radiculopathy, lumbar region; M48.061 Spinal stenosis, lumbar region without neurogenic claudication; J44.9 Chronic obstructive pulmonary disease, unspecified; I10 Essential (primary) hypertension; G47.33 Obstructive sleep apnea (adult) (pediatric); I11.0 Hypertensive heart disease with heart failure; I25.10 Atherosclerotic heart disease of native coronary artery without angina pectoris; I50.9 Heart failure, unspecified; E03.9 Hypothyroidism, unspecified; E78.5 Hyperlipidemia, unspecified; N28.1 Cyst of kidney, acquired; G47.30 Sleep apnea, unspecified; R73.03 Prediabetes; M19.90 Unspecified osteoarthritis, unspecified site; H40.9 Unspecified glaucoma; I70.0 Atherosclerosis of aorta; M70.61 Trochanteric bursitis, right hip; M70.62 Trochanteric bursitis, left hip; M16.0 Bilateral primary osteoarthritis of hip; E66.01 Morbid (severe) obesity due to excess calories; G89.29 Other chronic pain; F32.9 Major depressive disorder, single episode, unspecified; F41.9 Anxiety disorder, unspecified; Z79.82 Long term (current) use of aspirin; Z79.899 Other long term (current) drug therapy; Z79.890 Hormone replacement therapy; Z91.09 Other allergy status, other than to drugs and biological substances; Z91.040 Latex allergy status; Z88.8 Allergy status to other drugs, medicaments and biological substances; Z87.891 Personal history of nicotine dependence; E78.00 Pure hypercholesterolemia, unspecified; Z95.5 Presence of coronary angioplasty implant and graft; Z88.1 Allergy status to other antibiotic agents; Z91.02 Food additives allergy status; Z91.048 Other nonmedicinal substance allergy status
CPT/HCPCS: 72131; 72192; 94640; 96372; 97110-GP; 97163-GP; 97530-GP; 97535-GP; 99284-25; A9270-GY; J1040; J1170; J3490

== ENCOUNTER 2023-03-10 16:15 | Emergency (ER) | payer MEDICARE ==
[2023-03-10 18:08] LABS: BASOPHILS ABSOLUTE AUTO 0.07 K/uL (0.00-0.10); BASOPHILS PERCENT AUTO 0.7 % (0.1-1.3); EOSINOPHILS ABSOLUTE AUTO 0.13 K/uL (0.00-0.40); EOSINOPHILS PERCENT AUTO 1.4 % (0.0-5.4); HEMATOCRIT 41.4 % (34.3-46.0); HEMOGLOBIN 13.8 g/dL (11.2-15.5); IMMATURE GRAN ABSOLUTE AUTO 0.06 K/uL (0.00-0.23); IMMATURE GRAN PERCENT AUTO 0.6 % (0.0-0.7); LYMPHOCYTES ABSOLUTE AUTO 1.36 K/uL (0.8-3.3); LYMPHOCYTES PERCENT AUTO 14.3 % (11.4-47.7); MEAN CORPUSCULAR HEMOGLOBIN 30.7 pg (31.6-35.5); MEAN CORPUSCULAR HGB CONC 33.3 g/dL (31.6-35.5); MONOCYTES ABSOLUTE AUTO 0.72 K/uL (0.20-0.90); MONOCYTES PERCENT AUTO 7.6 % (3.3-12.6); NEUTROPHILS ABSOLUTE AUTO 7.18 K/uL (1.0-7.6); NEUTROPHILS PERCENT AUTO 75.4 % (40.0-78.1); PLATELET COUNT,PLT 255 K/uL (130-375); WHITE BLOOD CELL COUNT,WBC 9.5 K/uL (3.2-11.0)
[2023-03-10 18:37] LABS: ALANINE AMINOTRANSFERASE,ALT 19 U/L (12-78); ALBUMIN 3.3 g/dL (3.4-5.0); ALKALINE PHOSPHATASE 65 U/L (46-116); ASPARTATE AMNIOTRANSFERASE,AST 20 U/L (15-37); BILIRUBIN TOTAL 0.3 mg/dL (0.2-1.0); BLOOD UREA NITROGEN,BUN 17 mg/dL (7-18); CALCIUM 8.8 mg/dL (8.5-10.1); CARBON DIOXIDE,CO2 32 mmol/L (21-32); CHLORIDE,CL 101 mmol/L (100-108); EST CRCL DRUG DOSING (CG) 37.85 mL/min; ESTIMATED GFR 58 mL/min (>60); GLUCOSE RANDOM 99 mg/dL (74-106); POTASSIUM,K 4.1 mmol/L (3.6-5.2); PROTEIN TOTAL,TP 6.5 g/dL (6.4-8.2); SODIUM,NA 137 mmol/L (140-148); TROPONIN I HIGH SENSITIVITY 11.8 pg/mL (<=60.3); TSH ULTRASENSITIVE 2.315 uIU/mL (0.358-3.740)
[2023-03-10 18:38] LABS: ANION GAP 8.1 mmol/L (5.0-14.0)
== END 2023-03-10 19:03 | disposition home or self-care (01) ==
LOC: JP.ED 16:15
DX: H53.8 Other visual disturbances (principal); R55 Syncope and collapse; I25.10 Atherosclerotic heart disease of native coronary artery without angina pectoris; I11.0 Hypertensive heart disease with heart failure; I50.9 Heart failure, unspecified; J44.9 Chronic obstructive pulmonary disease, unspecified; M19.90 Unspecified osteoarthritis, unspecified site; E66.9 Obesity, unspecified; Z79.01 Long term (current) use of anticoagulants; Z79.82 Long term (current) use of aspirin; Z88.8 Allergy status to other drugs, medicaments and biological substances; Z91.048 Other nonmedicinal substance allergy status; Z91.040 Latex allergy status; Z88.1 Allergy status to other antibiotic agents; Z79.899 Other long term (current) drug therapy
CPT/HCPCS: 36415; 80053; 84443; 84484; 85025; 99283

== ENCOUNTER 2024-05-21 20:30 | Emergency (ER) | payer MEDICARE ==
[2024-05-21 21:42] LABS: APPEARANCE,URINE CLOUDY (CLEAR); BILIRUBIN,URINE NEGATIVE (NEGATIVE); COLOR,URINE YELLOW (YELLOW); GLUCOSE,URINE NEGATIVE (NEGATIVE); KETONES,URINE NEGATIVE (NEGATIVE); LEUKOCYTE ESTERASE,URINE TRACE (NEGATIVE); NITRITE,URINE NEGATIVE (NEGATIVE); OCCULT BLOOD,URINE MODERATE (NEGATIVE); PROTEIN,URINE 30 mg/dL (NEGATIVE)
[2024-05-21 21:51] LABS: AMORPHOUS SEDIMENT,URINE NOT SEEN; BACTERIA,URINE RARE; EPITHELIAL CELLS,URINE MODERATE; MUCUS,URINE FEW; WBC,URINE 0-5 (0-5)
== END 2024-05-21 23:47 | disposition home or self-care (01) ==
LOC: JP.ED 20:30
DX: N20.1 Calculus of ureter (principal); I10 Essential (primary) hypertension; M19.90 Unspecified osteoarthritis, unspecified site; E78.00 Pure hypercholesterolemia, unspecified; E66.9 Obesity, unspecified; Z91.040 Latex allergy status; Z88.8 Allergy status to other drugs, medicaments and biological substances; Z91.048 Other nonmedicinal substance allergy status; Z79.82 Long term (current) use of aspirin; Z79.84 Long term (current) use of oral hypoglycemic drugs; Z79.899 Other long term (current) drug therapy; Z90.49 Acquired absence of other specified parts of digestive tract; Z87.891 Personal history of nicotine dependence; Z68.34 Body mass index [BMI] 34.0-34.9, adult
CPT/HCPCS: 74176; 81001; 99283; 99284

== ENCOUNTER 2024-06-07 07:07 | Day surgery (SDC) | payer MEDICARE ==
[2024-06-07] MEDS ORDERED: fentaNYL 50 MCG/ML SDV ONE (07:55)
[2024-06-07] MEDS ORDERED: Propofol 200 MG/20 ML SDV ONE (07:55)
[2024-06-07] MEDS ORDERED: Sodium Chloride 0.9% 1,000 ML IV SCH (08:15)
== END 2024-06-07 11:30 | disposition home or self-care (01) ==
LOC: JP.SDS 07:07
PROVIDERS: ATTEND Surgery
DX: Z12.11 Encounter for screening for malignant neoplasm of colon (principal); D12.2 Benign neoplasm of ascending colon; K57.30 Diverticulosis of large intestine without perforation or abscess without bleeding; J44.9 Chronic obstructive pulmonary disease, unspecified; I11.0 Hypertensive heart disease with heart failure; I50.30 Unspecified diastolic (congestive) heart failure; G47.33 Obstructive sleep apnea (adult) (pediatric); E11.9 Type 2 diabetes mellitus without complications; E66.01 Morbid (severe) obesity due to excess calories
CPT/HCPCS: 45385; 88305; J2704; J3010; 00811-QZ

== ENCOUNTER 2025-01-03 21:31 | Emergency (ER) | payer MEDICARE, OTHER ==
[2025-01-03 23:01] LABS: BASOPHILS PERCENT AUTO 0.8 % (0.1-1.3); EOSINOPHILS ABSOLUTE AUTO 0.26 K/uL (0.00-0.40); EOSINOPHILS PERCENT AUTO 2.1 % (0.0-5.4); HEMATOCRIT 40.2 % (34.3-46.0); HEMOGLOBIN 13.5 g/dL (11.2-15.5); IMMATURE GRAN ABSOLUTE AUTO 0.04 K/uL (0.00-0.23); IMMATURE GRAN PERCENT AUTO 0.3 % (0.0-0.7); LYMPHOCYTES ABSOLUTE AUTO 1.55 K/uL (0.8-3.3); LYMPHOCYTES PERCENT AUTO 12.3 % (11.4-47.7); MEAN CORPUSCULAR HEMOGLOBIN 30.7 pg (31.6-35.5); MEAN CORPUSCULAR HGB CONC 33.6 g/dL (31.6-35.5); MEAN CORPUSCULAR VOLUME 91.4 fL (81.4-99.0); MONOCYTES ABSOLUTE AUTO 1.15 K/uL (0.20-0.90); MONOCYTES PERCENT AUTO 9.1 % (3.3-12.6); NEUTROPHILS ABSOLUTE AUTO 9.47 K/uL (1.0-7.6); NEUTROPHILS PERCENT AUTO 75.4 % (40.0-78.1); PLATELET COUNT,PLT 201 K/uL (130-375); WHITE BLOOD CELL COUNT,WBC 12.6 K/uL (3.2-11.0)
[2025-01-03 23:03] LABS: APPEARANCE,URINE SLIGHTLY CLOUDY (CLEAR); BILIRUBIN,URINE NEGATIVE (NEGATIVE); COLOR,URINE YELLOW (YELLOW); GLUCOSE,URINE NEGATIVE (NEGATIVE); KETONES,URINE NEGATIVE (NEGATIVE); LEUKOCYTE ESTERASE,URINE NEGATIVE (NEGATIVE); NITRITE,URINE NEGATIVE (NEGATIVE); OCCULT BLOOD,URINE MODERATE (NEGATIVE); PH,URINE 6.5 (5.0-8.0); PROTEIN,URINE >=300 mg/dL (NEGATIVE)
[2025-01-03 23:08] LABS: AMORPHOUS SEDIMENT,URINE NOT SEEN; BACTERIA,URINE FEW; EPITHELIAL CELLS,URINE FEW; MUCUS,URINE NOT SEEN; WBC,URINE 0-5 (0-5)
[2025-01-03 23:16] LABS: CALCIUM 9.2 mg/dL (8.5-10.1); CREATININE 0.9 mg/dL (0.6-1.0); EST CRCL DRUG DOSING (CG) 41.68 mL/min; POTASSIUM,K 3.4 mmol/L (3.6-5.2)
[2025-01-03 23:17] LABS: ANION GAP 13.4 mmol/L (5.0-14.0)
== END 2025-01-04 01:35 | disposition home or self-care (01) ==
LOC: JP.ED 21:31
DX: N39.0 Urinary tract infection, site not specified (principal); I11.0 Hypertensive heart disease with heart failure; I50.9 Heart failure, unspecified; J44.9 Chronic obstructive pulmonary disease, unspecified; E78.00 Pure hypercholesterolemia, unspecified; I25.10 Atherosclerotic heart disease of native coronary artery without angina pectoris; Z91.048 Other nonmedicinal substance allergy status; Z91.040 Latex allergy status; Z88.8 Allergy status to other drugs, medicaments and biological substances; Z79.82 Long term (current) use of aspirin; Z79.899 Other long term (current) drug therapy; Z79.84 Long term (current) use of oral hypoglycemic drugs; Z95.5 Presence of coronary angioplasty implant and graft; Z87.891 Personal history of nicotine dependence
CPT/HCPCS: 36415; 74176; 80048; 81001; 85025; 99283; 99284

== ENCOUNTER 2025-04-15 06:45 | Day surgery (SDC) | payer MEDICARE ==
[2025-04-15] MEDS ORDERED: Propofol 200 MG/20 ML SDV ONE (06:58)
[2025-04-15] MEDS ORDERED: fentaNYL 50 MCG/ML SDV ONE (06:58)
[2025-04-15] MEDS: Lactated Ringers 1,000 ML IV SCH (07:38)
== END 2025-04-15 10:15 | disposition home or self-care (01) ==
LOC: JP.SDS 06:45
PROVIDERS: ATTEND Surgery
DX: K20.90 Esophagitis, unspecified without bleeding (principal); K22.89 Other specified disease of esophagus; I11.0 Hypertensive heart disease with heart failure; I50.9 Heart failure, unspecified
CPT/HCPCS: 00813; 43239; 45378; J2704; J3010; J7120